=== PATIENT | male | born 1965 ===

== ENCOUNTER 2017-09-23 15:20 | Inpatient (IN) | payer MEDICAID ==
[2017-09-23 15:20] VITALS: BMI 27.1
--- NOTE | 2017-09-23 16:37 | C.PDOC ---
History Of Present Illness 52M c/o bilateral leg redness and "burning" pain x2 days. chronic swelling. says he has had same problem in the past but unsure of cause. denies f/c, n/v. Time Seen by Provider: 09/23/17 16:31 Chief Complaint (Nursing): Abnormal Skin Integrity Past Medical History Vital Signs: Last Vital Signs Temp 97.4 F L 09/28/17 07:45 Pulse 65 09/28/17 07:45 Resp 20 09/28/17 07:45 BP 123/78 09/28/17 07:45 Pulse Ox 95 09/28/17 07:45 - Medical History PMH: Anxiety, Arthritis, Asthma, Back Problems, Depression, Hepatitis (c), HIV, Rheumatoid Arthritis (hands, knees, ankles) Denies: Chronic Kidney Disease Surgical History: Endoscopy Family History: States: Other Other Family History: nc - Social History Hx Alcohol Use: No Hx Substance Use: Yes (Clean for 5 yrs. now) Review Of Systems Except As Marked, All Systems Reviewed And Found Negative. Constitutional: Negative for: Fever, Chills Cardiovascular: Negative for: Chest Pain Respiratory: Negative for: Cough, Shortness of Breath Gastrointestinal: Negative for: Vomiting, Abdominal Pain Skin: Positive for: Rash Neurological: Negative for: Weakness, Numbness, Headache Physical Exam - Physical Exam Appears: Well, Non-toxic, No Acute Distress Skin: Warm, Dry Head: Atraumatic Eye(s): bilateral: PERRL Nose: No Epistaxis Oral Mucosa: Moist Cardiovascular: Rhythm Regular Respiratory: No Decreased Breath Sounds, No Accessory Muscle Use, No Rales, No Rhonchi, No Stridor, No Wheezing Gastrointestinal/Abdominal: No Tenderness Extremity: Swelling, Other (2+ ) Pulses: Left Dorsalis Pedis: Normal, Right Dorsalis Pedis: Normal Neurological/Psych: Oriented x3, Other (no focal deficits) ED Course And Treatment - Laboratory Results Result Diagrams: 09/27/17 07:06 09/27/17 07:06 O2 Sat by Pulse Oximetry: 94 Disposition - Disposition Disposition: HOSPITALIZED Disposition Time: 19:03 Condition: STABLE - Clinical Impression Clinical Impression: Cellulitis of both feet, AIDS, Hepatitis C
--- NOTE | 2017-09-23 17:09 | RAD ---
HISTORY: leg swelling COMPARISON: None available. TECHNIQUE: Chest, one view. FINDINGS: Examination limited by habitus and hypoinflation. LUNGS: Right hilar/infrahilar prominence of uncertain etiology ; adenopathy is not excluded. Left hilar prominence. Hazy patchy opacity in the left upper lobe may reflect pneumonia. Probable atelectasis at the right lung base. Please note that chest x-ray has limited sensitivity for the detection of pulmonary masses. PLEURA: No significant pleural effusion identified. No definite pneumothorax . CARDIOVASCULAR: Heart size appears within normal limits. OSSEOUS STRUCTURES: No acute osseous abnormality identified. VISUALIZED UPPER ABDOMEN: Unremarkable. OTHER FINDINGS: None. IMPRESSION: Right hilar/infrahilar prominence of uncertain etiology ; adenopathy is not excluded. Left hilar prominence. Further evaluation may be considered with CT of the chest with IV contrast if indicated. Hazy patchy opacity in the left upper lobe may reflect pneumonia. Probable atelectasis at the right lung base.
[2017-09-23 17:29] LABS: ALBUMIN 2.3 g/dL (3.5-5.0); ALT/SGPT 54 U/L (21-72); AST/SGOT 114 U/L (17-59); BLOOD UREA NITROGEN 15 mg/dL (9-20); CALCIUM 7.4 mg/dl (8.6-10.4); GFR AFRICAN-AMERICAN > 60; GFR NON-AFRICAN AMERICAN > 60
[2017-09-23 17:31] LABS: BASO % 0.3 % (0.0-2.0); EOS % 0.6 % (0.0-4.0); HEMOGLOBIN 12.1 g/dL (12.0-18.0); LYMPH % 13.7 % (20.0-40.0); MEAN CELL VOLUME 94.4 fL (80.0-94.0); MEAN CORPUSCULAR HEMOGLOBIN 32.4 pg (27.0-31.0); MEAN CORPUSCULAR HGB CONC 34.4 g/dL (33.0-37.0); MEAN PLATELET VOLUME 9.2 fL (7.2-11.7); MONO % 14.2 % (0.0-10.0); NEUT # 5.2 K/uL (1.8-7.0); NEUT % 71.2 % (50.0-75.0); NRBC % 0.1 % (0.0-2.0); RBC 3.72 Mil/uL (4.40-5.90); RED CELL DISTRIBUTION WIDTH 14.6 % (11.5-14.5); WHITE BLOOD COUNT 7.3 K/uL (4.8-10.8)
[2017-09-23 17:35] LABS: ALB/GLOB RATIO 0.6 (1.0-2.1)
[2017-09-23 17:42] LABS: B-TYPE NATRIURETIC PEPTIDE 654 pg/mL (0-900)
[2017-09-23] MEDS ORDERED: Piperacill/Tazo 3.375gm in Dex 3.375 GM/50 ML BAG IVPB STA (19:03)
[2017-09-23] MEDS ORDERED: Vancomycin 500 mg Inj IVPB STA (19:03)
[2017-09-23] MEDS ORDERED: Albuterol HFA 90 mcg/actuation (8 g) IH PRN (20:58)
[2017-09-23] MEDS ORDERED: SODIUM BICARBONATE PO SCH (21:00)
[2017-09-23] MEDS ORDERED: SODIUM SULFATE PO SCH (21:00)
[2017-09-23] MEDS ORDERED: SODIUM CHLORIDE PO SCH (21:00)
[2017-09-23] MEDS ORDERED: [UNRECOGNIZED DRUG - OTHER] PO SCH (21:00)
[2017-09-23] MEDS ORDERED: POTASSIUM CHLORIDE PO SCH (21:00)
[2017-09-23] MEDS: Piperacill/Tazo 3.375gm in Dex 3.375 GM/50 ML BAG IVPB SCH (21:04)
[2017-09-24] MEDS: Piperacill/Tazo 3.375gm in Dex 3.375 GM/50 ML BAG IVPB SCH ×4 (02:59→21:49)
[2017-09-24] MEDS: oxyCODONE 5 mg Immediate Release Tab PO PRN (11:06)
[2017-09-24] MEDS: Vancomycin 1 gm/NS 200 ml 1 GM/200 ML BAG IVPB SCH (14:41)
[2017-09-24] MEDS: Silver Sulfadiazine 1% Cream (20 gm) TOP SCH (18:40)
--- NOTE | 2017-09-25 02:35 | CP.PCM.HP ---
History of Present Illness - History of Present Illness History of Present Illness: CC: B/l Leg pain, swelling and discharge x 1 week HPi: 52M with h/o chronic hep C infection , hepatocellular cancer and he also have AIDS on HAART,he is ambulatory and independent of ADL complaint with diet and medication.he is undergoing workup for Hepatocellular cancer at [facility] c/o bilateral leg redness and "burning" pain x2 days. chronic swelling. says he has had same problem in the past but unsure of cause. denies f/c, n/v. He also have mild abdominal discomfort Present on Admission - Present on Admission Any Indicators Present on Admission: Yes Review of Systems - Constitutional Constitutional: Chills, Fatigue, Fever, Lethargy, Malaise, Weight Loss - EENT Eyes: absent: As Per HPI, Blind Spots, Blurred Vision, Change in Vision, Decreased Night Vision, Diplopia, Discharge, Dry Eye, Exophthalmos, Floaters, Irritation, Itchy Eyes, Loss of Peripheral Vision, Pain, Photophobia, Requires Corrective Lenses, Sees Flashes, Spots in Vision, Tunnel Vision, Other Visual Disturbances, Loss of Vision, Other Nose/Mouth/Throat: absent: As Per HPI, Epistaxis, Nasal Congestion, Nasal Discharge, Nasal Obstruction, Nasal Trauma, Nose Pain, Post Nasal Drip, Sinus Pain, Sinus Pressure, Bleeding Gums, Change in Voice, Dental Pain, Dry Mouth, Dysphagia, Halitosis, Hoarsness, Lip Swelling, Mouth Lesions, Mouth Pain, Odynophagia, Sore Throat, Throat Swelling, Tongue Swelling, Facial Pain, Neck Pain, Neck Mass, Other - Cardiovascular Cardiovascular: Pedal Edema. absent: As Per HPI, Acrocyanosis, Chest Pain, Chest Pain at Rest, Chest Pain with Activity, Claudication, Diaphoresis, Dyspnea , Dyspnea on Exertion, Edema, Irregular Heart Rhythm, Pain Radiating to Arm/Neck /Jaw, Leg Edema, Leg Ulcers, Lightheadedness, Orthopnea, Palpitations, Paroxysmal Nocturnal Dyspnea, Radiating Pain, Rapid Heart Rate, Slow Heart Rate , Syncope, Other - Respiratory Respiratory: absent: As Per HPI, Cough, Dyspnea, Hemoptysis, Dyspnea on Exertion , Wheezing, Snoring, Stridor, Pain on Inspiration, Chest Congestion, Excessive Mucous Production, Change in Mucous Color, Pain with Coughing, Other - Gastrointestinal Gastrointestinal: Abdominal Pain. absent: As Per HPI, Belching, Bloating, Change in Bowel Habits, Change in Stool Character, Coffee Ground Emesis, Constipation, Cramping, Diarrhea, Dyspepsia, Dysphagia, Early Satiety, Excessive Flatus, Fecal Incontinence, Heartburn, Hematemesis, Hematochezia, Loose Stools, Melena, Nausea, Odynophagia, Temesmus, Vomiting, Other - Genitourinary Genitourinary: absent: As Per HPI, Change in Urinary Stream, Difficulty Urinating, Dysuria, Flank Pain, Hematuria, Pyuria, Nocturia, Urinary Incontinence, Urinary Frequency, Urinary Hesitance, Urinary Urgency, Voiding Freq/Small Amts, Freq UTI, Hx Renal/Bladder Calculi, Hx /Renal Surgery, Bladder Distension, Other - Musculoskeletal Musculoskeletal: Myalgias - Integumentary Integumentary: Changing Lesions, Dry Skin, Erythema, Non-Healing Lesions, Swelling, Wounds - Neurological Neurological: absent: As Per HPI, Abnormal Gait, Abnormal Hearing, Abnormal Movements, Abnormal Speech, Behavioral Changes, Burning Sensations, Confusion, Convulsions, Disequilibrium, Dizziness, Numbness, Focal Weakness, Frequent Falls , Headaches, Lack of Coordination, Loss of Vision, Memory Loss, Paresthesias, Radicular Pain, Restless Legs, Sensory Deficit, Syncope, Tingling, Tremor, Vertigo, Weakness, Other Visual Disturbances, Other - Psychiatric Psychiatric: absent: As Per HPI, Abnormal Sleep Pattern, Anhedonia, Anxiety, Auditory Hallucinations, Behavioral Changes, Change in Appetite, Change in Libido, Confusion, Depression, Difficulty Concentrating, Hallucinations, Homicidal Ideation, Hopelessness, Irritability, Memory Loss, Mood Swings, Panic Attacks, Paranoia, Suicidal Ideation, Visual Hallucinations, Tactile Hallucinations, Other - Endocrine Endocrine: absent: As Per HPI, Change in Body Appearance, Change in Libido, Cold Intolorance, Deepening of Voice, Excessive Sweating, Fatigue, Flushing, Heat Intolorance, Increase in Ring/Shoe/Hat Size, Palpitations, Polydipsia, Polyphagia, Polyuria, Other Past Patient History - Past Medical History & Family History Past Medical History?: Yes - Past Social History Smoking Status: Light Smoker < 10 Cigarettes Daily - CARDIAC Hx Cardiac Disorders: No - PULMONARY Hx Asthma: Yes - NEUROLOGICAL Hx Neurological Disorder: Yes Hx Dizziness: Yes Other/Comment: NUMBNESS/CRAMPS LEGS - HEENT Hx HEENT Problems: No - RENAL Hx Chronic Kidney Disease: No - ENDOCRINE/METABOLIC Hx Endocrine Disorders: No - HEMATOLOGICAL/ONCOLOGICAL Hx Human Immunodeficiency Virus (HIV): Yes - INTEGUMENTARY Hx Dermatological Problems: No - MUSCULOSKELETAL/RHEUMATOLOGICAL Hx Arthritis: Yes Hx Falls: No Hx Rheumatoid Arthritis: Yes (hands, knees, ankles) - GASTROINTESTINAL Hx Gastrointestinal Disorders: No - GENITOURINARY/GYNECOLOGICAL Hx Genitourinary Disorders: No - PSYCHIATRIC Hx Anxiety: Yes Hx Depression: Yes Hx Substance Use: Yes (Clean for 5 yrs. now) - SURGICAL HISTORY Hx Surgeries: Yes - ANESTHESIA Hx Anesthesia: Yes Hx Anesthesia Reactions: No Hx Malignant Hyperthermia: No Meds Allergies/Adverse Reactions: Allergies Allergy/AdvReac Type Severity Reaction Status Date / Time No Known Allergies Allergy Verified 09/23/17 15:36 Physical Exam - Constitutional Appears: No Acute Distress, Chronically Ill - Head Exam Head Exam: ATRAUMATIC, NORMAL INSPECTION, NORMOCEPHALIC - Eye Exam Eye Exam: EOMI, Normal appearance, PERRL Pupil Exam: NORMAL ACCOMODATION, PERRL - Respiratory Exam Respiratory Exam: Clear to Auscultation Bilateral, NORMAL BREATHING PATTERN - Cardiovascular Exam Cardiovascular Exam: REGULAR RHYTHM - GI/Abdominal Exam GI & Abdominal Exam: Normal Bowel Sounds, Organomegaly - Rectal Exam Rectal Exam: Deferred - Extremities Exam Extremities exam: Positive for: tenderness Additional comments: Pt has erythema and redness, swelling from knee down to foot and open wound on laertal aspect on both legs on popliteal fossa he has excoriation - Psychiatric Exam Psychiatric exam: Anxious - Skin Skin Exam: Erythema, Rash, Vesicles Results - Vital Signs Recent Vital Signs: Last Vital Signs Temp 98.3 F 09/24/17 23:34 Pulse 71 09/24/17 23:34 Resp 18 09/24/17 23:34 BP 120/69 09/24/17 23:34 Pulse Ox 95 09/24/17 23:34 - Labs Result Diagrams: 09/25/17 08:41 09/25/17 08:41 Assessment & Plan (1) Cellulitis of both feet Assessment and Plan: wound care podiatry consult antibiotics Status: Acute (2) HCC (hepatocellular carcinoma) Assessment and Plan: pending work up after that he will have plan of care Status: Acute (3) Hepatitis C Status: Chronic (4) AIDS Assessment and Plan: On HAART Status: Acute
[2017-09-25] MEDS: Vancomycin 1 gm/NS 200 ml 1 GM/200 ML BAG IVPB SCH ×2 (02:45→15:09)
[2017-09-25] MEDS: Piperacill/Tazo 3.375gm in Dex 3.375 GM/50 ML BAG IVPB SCH ×4 (04:24→21:29)
[2017-09-25 08:28] VITALS: RESP 20
[2017-09-25 08:49] LABS: HEMOGLOBIN 12.1 g/dL (12.0-18.0); MEAN CELL VOLUME 93.9 fL (80.0-94.0); MEAN CORPUSCULAR HEMOGLOBIN 32.1 pg (27.0-31.0); MEAN CORPUSCULAR HGB CONC 34.2 g/dL (33.0-37.0); MEAN PLATELET VOLUME 8.2 fL (7.2-11.7); RBC 3.76 Mil/uL (4.40-5.90); RED CELL DISTRIBUTION WIDTH 14.7 % (11.5-14.5); WHITE BLOOD COUNT 6.9 K/uL (4.8-10.8)
[2017-09-25 09:07] LABS: BLOOD UREA NITROGEN 16 mg/dL (9-20); CALCIUM 7.1 mg/dl (8.6-10.4); GFR AFRICAN-AMERICAN > 60; GFR NON-AFRICAN AMERICAN > 60
--- NOTE | 2017-09-25 09:35 | CP.PCM.CON ---
<Ulysses Andujar - Last Filed: 09/25/17 09:35> Past Patient History - Past Medical History & Family History Past Medical History?: Yes - Past Social History Smoking Status: Light Smoker < 10 Cigarettes Daily - CARDIAC Hx Cardiac Disorders: No - PULMONARY Hx Asthma: Yes - NEUROLOGICAL Hx Neurological Disorder: Yes Hx Dizziness: Yes Other/Comment: NUMBNESS/CRAMPS LEGS - HEENT Hx HEENT Problems: No - RENAL Hx Chronic Kidney Disease: No - ENDOCRINE/METABOLIC Hx Endocrine Disorders: No - HEMATOLOGICAL/ONCOLOGICAL Hx Human Immunodeficiency Virus (HIV): Yes - INTEGUMENTARY Hx Dermatological Problems: No - MUSCULOSKELETAL/RHEUMATOLOGICAL Hx Arthritis: Yes Hx Falls: No Hx Rheumatoid Arthritis: Yes (hands, knees, ankles) - GASTROINTESTINAL Hx Gastrointestinal Disorders: No - GENITOURINARY/GYNECOLOGICAL Hx Genitourinary Disorders: No - PSYCHIATRIC Hx Anxiety: Yes Hx Depression: Yes Hx Substance Use: Yes (Clean for 5 yrs. now) - SURGICAL HISTORY Hx Surgeries: Yes - ANESTHESIA Hx Anesthesia: Yes Hx Anesthesia Reactions: No Hx Malignant Hyperthermia: No Meds Allergies/Adverse Reactions: Allergies Allergy/AdvReac Type Severity Reaction Status Date / Time No Known Allergies Allergy Verified 09/23/17 15:36 - Medications Medications: Current Medications Albuterol (Ventolin Hfa 90 Mcg/Actuation (8 G)) 2 puff IH Q4 PRN PRN Reason: Shortness of Breath Darunavir (Prezista) 800 mg PO DAILY [facility] Last Admin: 09/24/17 10:15 Dose: 800 mg Dolutegravir Sodium (Tivicay) 50 mg PO DAILY [facility] Last Admin: 09/24/17 10:15 Dose: 50 mg Escitalopram Oxalate (Lexapro) 5 mg PO DAILY [facility] Last Admin: 09/24/17 10:15 Dose: 5 mg Gabapentin (Neurontin) 300 mg PO TID [facility] Last Admin: 09/24/17 17:00 Dose: 300 mg Heparin Sodium (Porcine) (Heparin) 5,000 units SC Q8 [facility] Last Admin: 09/25/17 05:44 Dose: 5,000 units Piperacillin Sod/Tazobactam Sod (Zosyn 3.375 Gm Iv Premix) 3.375 gm in 50 mls @ 100 mls/hr IVPB Q6H [facility] Last Admin: 09/25/17 08:35 Dose: 100 mls/hr Vancomycin/Sodium Chloride (Vancomycin 1 Gm/Ns 200 Ml) 1 gm in 200 mls @ 166.6 mls/hr IVPB Q12H [facility] Stop: 09/29/17 14:31 Last Admin: 09/25/17 02:45 Dose: 166.6 mls/hr Mirtazapine (Remeron) 15 mg PO HS [facility] Last Admin: 09/24/17 21:50 Dose: 15 mg Oxycodone HCl (Oxycodone Immediate Release Tab) 5 mg PO Q6 PRN PRN Reason: Pain, severe (8-10) Last Admin: 09/24/17 11:06 Dose: 5 mg Propranolol HCl (Inderal) 20 mg PO HS [facility] Last Admin: 09/24/17 21:50 Dose: 20 mg Ritonavir (Norvir) 100 mg PO DAILY [facility] Last Admin: 09/24/17 10:15 Dose: 100 mg Silver Sulfadiazine (Silvadene 1% 20 Gm) 1 ea TOP BID [facility] Last Admin: 09/24/17 18:40 Dose: 1 % Results - Vital Signs Recent Vital Signs: Last Vital Signs Temp 98.1 F 09/25/17 08:27 Pulse 75 09/25/17 08:27 Resp 20 09/25/17 08:27 BP 113/63 09/25/17 08:27 Pulse Ox 93 L 09/25/17 08:27 - Labs Result Diagrams: 09/25/17 08:41 09/25/17 08:41 Labs: Laboratory Results - last 24 hr 09/25/17 09/25/17 08:41 08:41 WBC 6.9 RBC 3.76 L Hgb 12.1 Hct 35.3 MCV 93.9 MCH 32.1 H MCHC 34.2 RDW 14.7 H Plt Count 143 MPV 8.2 Sodium 130 L Potassium 3.7 Chloride 98 Carbon Dioxide 30 Anion Gap 5 L BUN 16 Creatinine 0.6 L Est GFR ( Amer) > 60 Est GFR (Non-Af Amer) > 60 Random Glucose 74 L Calcium 7.1 L <Jeremy Ace - Last Filed: 09/25/17 11:52> History of Present Illness - History of Present Illness History of Present Illness: Podiatry Consult Note- Dr. Andujar 52 y.o male with PMH of HIV, Hepatitis C, Liver fibrosis, HCC seen at bedside for bilateral LE redness with pain. Patient is seen resting in bed, in NAD, and AAOx3. Patient complains of bilaterally redness that has occured for the past 3 days. He states that his legs has gotten progressively dry with increase redness. Most pain behind the knee. Patient reports this has happened in the past and he was given medication which caused the redness to go away. Patient denies n/v/sob/cp/chills or f. No other pedal complains at this time. Taken from EMR: PMD: Dr. Gregg Pino (last visit 06/19/2017) PMHx: HIV, Hepatitis C, Liver fibrosis, Anxiety, depression, HCC MEDS: see medication list Psurghx: liver biopsy PHosphx: various ED visits ALL: NKDA Social: denies ETOH/drug abuse, still smokes tobacco, approx 6-7 cigarettes per day. reports being clean for > 5 years from substance abuse Familyhx: denies any hx of cancer/CAD/KS/Stroke Meds - Medications Medications: Current Medications Albuterol (Ventolin Hfa 90 Mcg/Actuation (8 G)) 2 puff IH Q4 PRN PRN Reason: Shortness of Breath Darunavir (Prezista) 800 mg PO DAILY [facility] Last Admin: 09/24/17 10:15 Dose: 800 mg Dolutegravir Sodium (Tivicay) 50 mg PO DAILY [facility] Last Admin: 09/24/17 10:15 Dose: 50 mg Escitalopram Oxalate (Lexapro) 5 mg PO DAILY [facility] Last Admin: 09/24/17 10:15 Dose: 5 mg Gabapentin (Neurontin) 300 mg PO TID [facility] Last Admin: 09/24/17 17:00 Dose: 300 mg Heparin Sodium (Porcine) (Heparin) 5,000 units SC Q8 [facility] Last Admin: 09/25/17 05:44 Dose: 5,000 units Piperacillin Sod/Tazobactam Sod (Zosyn 3.375 Gm Iv Premix) 3.375 gm in 50 mls @ 100 mls/hr IVPB Q6H [facility] Last Admin: 09/25/17 08:35 Dose: 100 mls/hr Vancomycin/Sodium Chloride (Vancomycin 1 Gm/Ns 200 Ml) 1 gm in 200 mls @ 166.6 mls/hr IVPB Q12H [facility] Stop: 09/29/17 14:31 Last Admin: 09/25/17 02:45 Dose: 166.6 mls/hr Mirtazapine (Remeron) 15 mg PO HS [facility] Last Admin: 09/24/17 21:50 Dose: 15 mg Oxycodone HCl (Oxycodone Immediate Release Tab) 5 mg PO Q6 PRN PRN Reason: Pain, severe (8-10) Last Admin: 09/24/17 11:06 Dose: 5 mg Propranolol HCl (Inderal) 20 mg PO HS [facility] Last Admin: 09/24/17 21:50 Dose: 20 mg Ritonavir (Norvir) 100 mg PO DAILY [facility] Last Admin: 09/24/17 10:15 Dose: 100 mg Silver Sulfadiazine (Silvadene 1% 20 Gm) 1 ea TOP BID [facility] Last Admin: 09/24/17 18:40 Dose: 1 % Physical Exam - Constitutional Appears: Well, Non-toxic, No Acute Distress - Extremities Exam Additional comments: Vasc: DP and PT 2/4 bilaterally, CFT < 3 seconds, temperature gradient warm to warm, mild edema to the LE noted Ortho: pain with palpation to the LE Neuro: protective and gross sensation intact bilaterally Derm: erythema noted to the entire LE, no ulcerations noted, no drainage, no purulence, no odor; severe xerosis noted to the b/l LE, more prominent on the medial aspect of bilateral ankles - Neurological Exam Neurological exam: Alert, Oriented x3 - Psychiatric Exam Psychiatric exam: Normal Affect, Normal Mood Results - Vital Signs Recent Vital Signs: Last Vital Signs Temp 98.1 F 09/25/17 08:27 Pulse 75 09/25/17 08:27 Resp 20 09/25/17 08:27 BP 113/63 09/25/17 08:27 Pulse Ox 93 L 09/25/17 08:27 - Labs Result Diagrams: 09/25/17 08:41 09/25/17 08:41 Labs: Laboratory Results - last 24 hr 09/25/17 09/25/17 08:41 08:41 WBC 6.9 RBC 3.76 L Hgb 12.1 Hct 35.3 MCV 93.9 MCH 32.1 H MCHC 34.2 RDW 14.7 H Plt Count 143 MPV 8.2 Sodium 130 L Potassium 3.7 Chloride 98 Carbon Dioxide 30 Anion Gap 5 L BUN 16 Creatinine 0.6 L Est GFR ( Amer) > 60 Est GFR (Non-Af Amer) > 60 Random Glucose 74 L Calcium 7.1 L Assessment & Plan - Assessment and Plan (Free Text) Assessment: 52 y.o male seen at bedside for bilateral LE erythema and pain Plan: Patient was examined and evaluated Discussed plan in detail with attending Dr. Andujar Vitals, labs, charts reviewed (afebrile, absent leukocytosis) Duplex ordered to r/o DVT of the LE LE will be cleansed with saline, dressed with bacitracin, xeroform, DSD, and Kerlix tomorrow following Duplex examination Continue with IV abx Patient may WBAT Podiatry will continue to follow while in house Thank you for the consult
[2017-09-25] MEDS: Silver Sulfadiazine 1% Cream (20 gm) TOP SCH ×2 (11:09→15:43)
--- NOTE | 2017-09-25 14:51 | CARD ---
APPROVED REPORT EKG Measurement Heart [id number] <Conclusion> Sinus rhythm with premature atrial complexes Left axis deviation Septal infarct, age undetermined Prolonged QT Abnormal ECG
[2017-09-25] MEDS: oxyCODONE 5 mg Immediate Release Tab PO PRN (17:46)
--- NOTE | 2017-09-25 22:52 | CP.PCM.PN ---
Subjective - Date & Time of Evaluation Date of Evaluation: 09/25/17 Time of Evaluation: 17:00 - Subjective Subjective: Pt seen & evalauted, pt is on antibiotics, he is afebrile, feeling better, no nausea, vomitting, on wound care for cellulitis of b/l feet Objective - Vital Signs/Intake and Output Vital Signs (last 24 hours): Temp Pulse Resp BP Pulse Ox 97.9 F 68 20 108/69 98 09/25/17 16:45 09/25/17 16:45 09/25/17 16:45 09/25/17 16:45 09/25/17 16:45 Intake and Output: 09/25/17 09/26/17 18:59 06:59 Intake Total 710 Balance 710 - Medications Medications: Current Medications Albuterol (Ventolin Hfa 90 Mcg/Actuation (8 G)) 2 puff IH Q4 PRN PRN Reason: Shortness of Breath Darunavir (Prezista) 800 mg PO DAILY [facility] Last Admin: 09/25/17 11:09 Dose: 800 mg Dolutegravir Sodium (Tivicay) 50 mg PO DAILY [facility] Last Admin: 09/25/17 11:09 Dose: 50 mg Escitalopram Oxalate (Lexapro) 5 mg PO DAILY [facility] Last Admin: 09/25/17 11:09 Dose: 5 mg Gabapentin (Neurontin) 300 mg PO TID [facility] Last Admin: 09/25/17 17:46 Dose: 300 mg Heparin Sodium (Porcine) (Heparin) 5,000 units SC Q8 [facility] Last Admin: 09/25/17 21:29 Dose: 5,000 units Piperacillin Sod/Tazobactam Sod (Zosyn 3.375 Gm Iv Premix) 3.375 gm in 50 mls @ 100 mls/hr IVPB Q6H [facility] Last Admin: 09/25/17 21:29 Dose: 100 mls/hr Vancomycin/Sodium Chloride (Vancomycin 1 Gm/Ns 200 Ml) 1 gm in 200 mls @ 166.6 mls/hr IVPB Q12H [facility] Stop: 09/29/17 14:31 Last Admin: 09/25/17 15:09 Dose: 166.6 mls/hr Mirtazapine (Remeron) 15 mg PO HS [facility] Last Admin: 09/25/17 21:29 Dose: 15 mg Mupirocin (Bactroban Ointment) 0 gm TOP BID [facility] Last Admin: 09/25/17 17:46 Dose: Not Given Oxycodone HCl (Oxycodone Immediate Release Tab) 5 mg PO Q6 PRN PRN Reason: Pain, severe (8-10) Last Admin: 09/25/17 17:46 Dose: 5 mg Propranolol HCl (Inderal) 20 mg PO HS [facility] Last Admin: 09/25/17 21:29 Dose: 20 mg Ritonavir (Norvir) 100 mg PO DAILY [facility] Last Admin: 09/25/17 11:09 Dose: 100 mg Silver Sulfadiazine (Silvadene 1% 20 Gm) 1 ea TOP BID [facility] Last Admin: 09/25/17 11:09 Dose: 1 % - Labs Labs: 09/25/17 08:41 09/25/17 08:41 - Constitutional Appears: No Acute Distress - Head Exam Head Exam: ATRAUMATIC, NORMAL INSPECTION, NORMOCEPHALIC - Eye Exam Eye Exam: EOMI, Normal appearance, PERRL Pupil Exam: NORMAL ACCOMODATION, PERRL - ENT Exam ENT Exam: Mucous Membranes Moist, Normal Exam - Neck Exam Neck Exam: Full ROM, Normal Inspection. absent: Lymphadenopathy - Respiratory Exam Respiratory Exam: Clear to Ausculation Bilateral, NORMAL BREATHING PATTERN - Cardiovascular Exam Cardiovascular Exam: REGULAR RHYTHM, +S1, +S2. absent: Murmur - GI/Abdominal Exam GI & Abdominal Exam: Soft, Normal Bowel Sounds. absent: Tenderness Assessment and Plan (1) Cellulitis of both feet Status: Acute (2) Abdominal pain Status: Acute (3) Gastroenteritis Status: Acute (4) HCC (hepatocellular carcinoma) Status: Acute
[2017-09-26] MEDS: Vancomycin 1 gm/NS 200 ml 1 GM/200 ML BAG IVPB SCH ×2 (01:58→13:29)
[2017-09-26] MEDS: Piperacill/Tazo 3.375gm in Dex 3.375 GM/50 ML BAG IVPB SCH ×4 (03:30→22:22)
[2017-09-26 09:28] LABS: BASO # 0.1 K/uL (0.0-0.2); BASO % 0.7 % (0.0-2.0); EOS # 0.1 K/uL (0.0-0.7); EOS % 0.9 % (0.0-4.0); HEMOGLOBIN 12.3 g/dL (12.0-18.0); LYMPH # 1.8 K/uL (1.0-4.3); LYMPH % 22.1 % (20.0-40.0); MEAN CORPUSCULAR HEMOGLOBIN 33.3 pg (27.0-31.0); MEAN CORPUSCULAR HGB CONC 33.9 g/dL (33.0-37.0); MEAN PLATELET VOLUME 8.9 fL (7.2-11.7); NEUT # 5.2 K/uL (1.8-7.0); NEUT % 64.3 % (50.0-75.0); NRBC % 0.4 % (0.0-2.0); RBC 3.68 Mil/uL (4.40-5.90); RED CELL DISTRIBUTION WIDTH 15.2 % (11.5-14.5)
[2017-09-26 09:40] LABS: ALB/GLOB RATIO 0.5 (1.0-2.1); ALT/SGPT 44 U/L (21-72); AST/SGOT 116 U/L (17-59); BLOOD UREA NITROGEN 20 mg/dL (9-20); GFR AFRICAN-AMERICAN > 60; GFR NON-AFRICAN AMERICAN > 60
[2017-09-26 09:41] LABS: MEAN CELL VOLUME 98.4 fL (80.0-94.0)
[2017-09-26] MEDS: Silver Sulfadiazine 1% Cream (20 gm) TOP SCH ×2 (10:54→18:21)
--- NOTE | 2017-09-26 11:09 | VASCLAB ---
PROCEDURE: Lower Extremity Venous Duplex Exam. HISTORY: r/o DVT PRIORS: None. TECHNIQUE: Bilateral common femoral, femoral, popliteal and posterior tibial, peroneal and great saphenous veins were evaluated. Flow was assessed with color Doppler, compressibility, assessment of phasic flow and augmentation response. Report prepared by BARTOLOME Vargas FINDINGS: RIGHT: 1. Common Femoral Vein: 1.1. Compressibility - Fully compressible: Thrombus - None : Flow - Phasic: Augmentation -Normal: Reflux - None. 2. Femoral Vein: 2.1. Compressibility - Fully compressible: Thrombus - None : Flow - Phasic: Augmentation -Normal: Reflux - None. 3. Popliteal Vein: 3.1. Compressibility - Fully compressible: Thrombus - None : Flow - Phasic: Augmentation -Normal: Reflux - None. 4. Posterior Tibial Vein: 4.1. Compressibility - Fully compressible: Thrombus - None: Flow - Phasic: Augmentation -Normal: Reflux - None. 5. Peroneal Vein: 5.1. Compressibility - Fully compressible: Thrombus - None: Flow - Phasic: Augmentation -Normal: Reflux - None. 6. Great Saphenous Vein: 6.1. Compressibility - Fully compressible: Thrombus - None: Flow - Phasic: Augmentation - Normal: Reflux - None. LEFT: 1. Common Femoral Vein: 1.1. Compressibility - Fully compressible: Thrombus - None: Flow - Phasic: Augmentation -Normal: Reflux - None. 2. Femoral Vein: 2.1. Compressibility - Fully compressible: Thrombus - None: Flow - Phasic: Augmentation -Normal: Reflux - None. 3. Popliteal Vein: 3.1. Compressibility - Fully compressible: Thrombus - None : Flow - Phasic: Augmentation -Normal: Reflux - None. 4. Posterior Tibial Vein: 4.1. Compressibility - Fully compressible: Thrombus - None: Flow - Phasic: Augmentation -Normal: Reflux - None. 5. Peroneal Vein: 5.1. Compressibility - Fully compressible: Thrombus - None: Flow - Phasic: Augmentation -Normal: Reflux - None. 6. Great Saphenous Vein: 6.1. Compressibility - Fully compressible: Thrombus - None: Flow - Phasic: Augmentation - Normal: Reflux - None. OTHER FINDINGS: Right: None significant. Left: None significant. IMPRESSION: Right: No evidence of deep or superficial vein thrombosis of the right lower extremity. Normal valve function noted of the right side. Left: No evidence of deep or superficial vein thrombosis of the left lower extremity. Normal valve function noted of the left side.
--- NOTE | 2017-09-26 14:24 | CP.PCM.PN ---
Subjective - Date & Time of Evaluation Date of Evaluation: 09/26/17 Time of Evaluation: 14:21 - Subjective Subjective: 52 y.o male seen at bedside for bilateral LE redness with pain. Patient is seen resting in bed, in NAD, and AAOx3. He states that his legs has gotten progressively dry with increased redness. Most pain behind the knee. Patient reports this has happened in the past and he was given medication which caused the redness to go away. Patient denies n/v/sob/cp/chills or f. No other pedal complains at this time. Objective - Vital Signs/Intake and Output Vital Signs (last 24 hours): Temp Pulse Resp BP Pulse Ox 97.7 F 76 20 123/69 95 09/26/17 07:40 09/26/17 07:40 09/26/17 07:40 09/26/17 07:40 09/26/17 07:40 - Medications Medications: Current Medications Albuterol (Ventolin Hfa 90 Mcg/Actuation (8 G)) 2 puff IH Q4 PRN PRN Reason: Shortness of Breath Darunavir (Prezista) 800 mg PO DAILY [facility] Last Admin: 09/26/17 10:54 Dose: 800 mg Dolutegravir Sodium (Tivicay) 50 mg PO DAILY [facility] Last Admin: 09/26/17 10:54 Dose: 50 mg Escitalopram Oxalate (Lexapro) 5 mg PO DAILY [facility] Last Admin: 09/26/17 10:55 Dose: 5 mg Gabapentin (Neurontin) 300 mg PO TID [facility] Last Admin: 09/26/17 10:54 Dose: Not Given Heparin Sodium (Porcine) (Heparin) 5,000 units SC Q8 [facility] Last Admin: 09/26/17 13:29 Dose: 5,000 units Piperacillin Sod/Tazobactam Sod (Zosyn 3.375 Gm Iv Premix) 3.375 gm in 50 mls @ 100 mls/hr IVPB Q6H [facility] Last Admin: 09/26/17 08:14 Dose: 100 mls/hr Vancomycin/Sodium Chloride (Vancomycin 1 Gm/Ns 200 Ml) 1 gm in 200 mls @ 166.6 mls/hr IVPB Q12H [facility] Stop: 09/29/17 14:31 Last Admin: 09/26/17 13:29 Dose: 166.6 mls/hr Mirtazapine (Remeron) 15 mg PO HS [facility] Last Admin: 09/25/17 21:29 Dose: 15 mg Mupirocin (Bactroban Ointment) 0 gm TOP BID [facility] Last Admin: 09/26/17 10:52 Dose: 1 applic Oxycodone HCl (Oxycodone Immediate Release Tab) 5 mg PO Q6 PRN PRN Reason: Pain, severe (8-10) Last Admin: 09/25/17 17:46 Dose: 5 mg Propranolol HCl (Inderal) 20 mg PO HS [facility] Last Admin: 09/25/17 21:29 Dose: 20 mg Ritonavir (Norvir) 100 mg PO DAILY [facility] Last Admin: 09/26/17 10:53 Dose: 100 mg Silver Sulfadiazine (Silvadene 1% 20 Gm) 1 ea TOP BID [facility] Last Admin: 09/26/17 10:54 Dose: Not Given - Labs Labs: 09/26/17 09:05 09/26/17 09:05 - Constitutional Appears: Well, Non-toxic, No Acute Distress - Extremities Exam Additional comments: Vasc: DP and PT 2/4 bilaterally, CFT < 3 seconds, temperature gradient warm to warm, mild edema to the LE noted Ortho: pain with palpation to the LE Neuro: protective and gross sensation intact bilaterally Derm: erythema noted to the entire LE, no ulcerations noted, no drainage, no purulence, no odor; severe xerosis noted to the b/l LE, more prominent on the medial aspect of bilateral ankles, no ascending cellulitis, no fluctuance - Neurological Exam Neurological Exam: Alert, Awake, Oriented x3 - Psychiatric Exam Psychiatric exam: Normal Affect, Normal Mood Assessment and Plan - Assessment and Plan (Free Text) Assessment: 52 y.o male seen at bedside for bilateral LE erythema and pain Plan: Patient was examined and evaluated Discussed plan in detail with attending Dr. Andujar Vitals, labs, charts reviewed (afebrile, absent leukocytosis) US shows no evidence of DVT bactroban applied to bilateral lower extremities Continue with IV abx Patient may WBAT Podiatry will continue to follow while in house
--- NOTE | 2017-09-26 15:23 | CP.PCM.CON ---
History of Present Illness - History of Present Illness History of Present Illness: Mr. Adams is a 52-year-old man with a past medical history of chronic hep C infection, hepatocellular cancer and he also have AIDS on HAART, who was admitted with lower extremity erythema and pain. He was evaluated by psych for drowsiness due to medications and there was concern that there may be an underlying neurologic reason. When I saw the patient, he was somnolent, but able to follow commands and complied with the examination. He complained of bilateral lower extremity pain, but said that it was improving since he is not able to move his legs better. Review of Systems - Review of Systems All systems: reviewed and no additional remarkable complaints except Past Patient History - Past Medical History & Family History Past Medical History?: Yes - Past Social History Smoking Status: Light Smoker < 10 Cigarettes Daily - CARDIAC Hx Cardiac Disorders: No - PULMONARY Hx Asthma: Yes - NEUROLOGICAL Hx Neurological Disorder: Yes Hx Dizziness: Yes Other/Comment: NUMBNESS/CRAMPS LEGS - HEENT Hx HEENT Problems: No - RENAL Hx Chronic Kidney Disease: No - ENDOCRINE/METABOLIC Hx Endocrine Disorders: No - HEMATOLOGICAL/ONCOLOGICAL Hx Human Immunodeficiency Virus (HIV): Yes - INTEGUMENTARY Hx Dermatological Problems: No - MUSCULOSKELETAL/RHEUMATOLOGICAL Hx Arthritis: Yes Hx Falls: No Hx Rheumatoid Arthritis: Yes (hands, knees, ankles) - GASTROINTESTINAL Hx Gastrointestinal Disorders: No - GENITOURINARY/GYNECOLOGICAL Hx Genitourinary Disorders: No - PSYCHIATRIC Hx Anxiety: Yes Hx Depression: Yes Hx Substance Use: Yes (Clean for 5 yrs. now) - SURGICAL HISTORY Hx Surgeries: Yes - ANESTHESIA Hx Anesthesia: Yes Hx Anesthesia Reactions: No Hx Malignant Hyperthermia: No Meds Allergies/Adverse Reactions: Allergies Allergy/AdvReac Type Severity Reaction Status Date / Time No Known Allergies Allergy Verified 09/23/17 15:36 - Medications Medications: Current Medications Albuterol (Ventolin Hfa 90 Mcg/Actuation (8 G)) 2 puff IH Q4 PRN PRN Reason: Shortness of Breath Darunavir (Prezista) 800 mg PO DAILY [facility] Last Admin: 09/26/17 10:54 Dose: 800 mg Dolutegravir Sodium (Tivicay) 50 mg PO DAILY [facility] Last Admin: 09/26/17 10:54 Dose: 50 mg Escitalopram Oxalate (Lexapro) 5 mg PO DAILY [facility] Last Admin: 09/26/17 10:55 Dose: 5 mg Heparin Sodium (Porcine) (Heparin) 5,000 units SC Q8 [facility] Last Admin: 09/26/17 13:29 Dose: 5,000 units Piperacillin Sod/Tazobactam Sod (Zosyn 3.375 Gm Iv Premix) 3.375 gm in 50 mls @ 100 mls/hr IVPB Q6H [facility] Last Admin: 09/26/17 14:56 Dose: 100 mls/hr Vancomycin/Sodium Chloride (Vancomycin 1 Gm/Ns 200 Ml) 1 gm in 200 mls @ 166.6 mls/hr IVPB Q12H [facility] Stop: 09/29/17 14:31 Last Admin: 09/26/17 13:29 Dose: 166.6 mls/hr Mirtazapine (Remeron) 15 mg PO [facility] Last Admin: 09/25/17 21:29 Dose: 15 mg Mupirocin (Bactroban Ointment) 0 gm TOP BID [facility] Last Admin: 09/26/17 10:52 Dose: 1 applic Oxycodone HCl (Oxycodone Immediate Release Tab) 5 mg PO Q6 PRN PRN Reason: Pain, severe (8-10) Last Admin: 09/25/17 17:46 Dose: 5 mg Propranolol HCl (Inderal) 20 mg PO [facility] Last Admin: 09/25/17 21:29 Dose: 20 mg Ritonavir (Norvir) 100 mg PO DAILY [facility] Last Admin: 09/26/17 10:53 Dose: 100 mg Silver Sulfadiazine (Silvadene 1% 20 Gm) 1 ea TOP BID [facility] Last Admin: 09/26/17 10:54 Dose: Not Given Physical Exam - Constitutional Appears: Confused - Head Exam Head Exam: ATRAUMATIC, NORMAL INSPECTION, NORMOCEPHALIC - Eye Exam Eye Exam: EOMI, Normal appearance, PERRL - ENT Exam ENT Exam: Mucous Membranes Moist, Normal Exam - Neck Exam Neck exam: Positive for: Normal Inspection - Respiratory Exam Respiratory Exam: Clear to Auscultation Bilateral, NORMAL BREATHING PATTERN - Cardiovascular Exam Cardiovascular Exam: REGULAR RHYTHM, +S1, +S2 - GI/Abdominal Exam GI & Abdominal Exam: Normal Bowel Sounds, Soft. absent: Tenderness - Rectal Exam Rectal Exam: Deferred - Extremities Exam Extremities exam: Positive for: normal inspection - Back Exam Back exam: NORMAL INSPECTION - Neurological Exam Neurological exam: Altered, CN II-XII Intact, Reflexes Normal Additional comments: Oriented to place, but not time. Able to recall 1/3 objects, could not spell WORLD forward or backward, could not complete subtraction task. Generalized weakness with 4/5 strength throught; sensation was intact throughout to LT/P. Gait was not assessed due to bilateral lower extremity pain/cellulitis. - Psychiatric Exam Psychiatric exam: Depressed, Flat Affect Results - Vital Signs Recent Vital Signs: Last Vital Signs Temp 97.7 F 09/26/17 07:40 Pulse 76 09/26/17 07:40 Resp 20 09/26/17 07:40 BP 123/69 09/26/17 07:40 Pulse Ox 95 09/26/17 07:40 - Labs Result Diagrams: 09/26/17 09:05 09/26/17 09:05 Labs: Laboratory Results - last 24 hr 09/26/17 09/26/17 09/26/17 09:05 09:05 11:59 WBC 8.0 RBC 3.68 L Hgb 12.3 Hct 36.2 MCV 98.4 H D MCH 33.3 H MCHC 33.9 RDW 15.2 H Plt Count 138 MPV 8.9 Neut % (Auto) 64.3 Lymph % (Auto) 22.1 [place]bour % (Auto) 12.0 H Eos % (Auto) 0.9 Baso % (Auto) 0.7 Neut # 5.2 Lymph # 1.8 [place] # 1.0 H Eos # 0.1 Baso # 0.1 Sodium 132 Potassium 3.7 Chloride 100 Carbon Dioxide 27 Anion Gap 9 L BUN 20 Creatinine 0.6 L Est GFR ( Amer) > 60 Est GFR (Non-Af Amer) > 60 POC Glucose (mg/dL) 88 Random Glucose 64 L Calcium 7.0 L Total Bilirubin 2.4 H AST 116 H ALT 44 Alkaline Phosphatase 275 H Total Protein 6.2 L Albumin 2.0 L Globulin 4.2 H Albumin/Globulin Ratio 0.5 L Assessment & Plan (1) Toxic metabolic encephalopathy Assessment and Plan: HIV encephalopathy is also a strong possibility in this case. However, due to the recent infection/cellulitis and recent medication changes, we have to consider toxic-metabolic encephalopathy as a leading cause or a possible encephalitis. The fact that the patient has AIDS means that he may not have fever or white count in the setting of infection. I recommend the followin. MRI of the brain with and without contrast. 2. Continue current antibiotic regimen 3. Fluids with NS at 100 mL/hr 4. PT/OT eval and treatment. 5. DVT Px Thank you. Status: Acute
--- NOTE | 2017-09-26 15:38 | PCM.PSYCH ---
Initial Psychiatric Evaluation - Initial Psychiatric Evaluation Type of Admission: Voluntary Legal Status: Capacity Chief Complaint (in patient's own words): "I have anxiety " History of Present Illness and Precipitating Events: The pt is seen, chart reviewed, case discussed with staff. Consult was requested bc of AMS Nurse states he has been very lethargic and held his neurotin dose this morning. He is still drowsy and poor historian. Patient is a 52 year old man with a history of anxiety, HIV. He is single, no children, and homeless. Currently he collects disability. Patient states his anxiety is well controlled on Lexapro. This medication was prescribed at a prior hospitalization likely at [facility]. He was also worked up there for AMS, likely due to brain involvement by HIV. He currently denies any feelings of anxiety, paranoia, hallucinations, or depression. He denies any use of drugs, alcohol, or tobacco products. He has a hx of drug use but has been sober for several years. His cognition comes and goes, most likely due to impending delirium. He is barely oriented and has poor attention and memory. Psych Hx: Denies PMH: Denies but again he is a poor historian, as he does have HIV, lver cirrhosis etc. Pls see chart. Family Psych Hx: Denies Current Medications: Active Medications Generic Name Dose Route Start Last Admin Trade Name Freq PRN Reason Stop Dose Admin Albuterol 2 puff 09/23/17 20:58 Ventolin Hfa 90 Mcg/Actuation (8 G) IH Q4 PRN Shortness of Breath Darunavir 800 mg 09/24/17 10:00 09/26/17 10:54 Prezista PO 800 mg DAILY [facility] Administration Dolutegravir Sodium 50 mg 09/24/17 10:00 09/26/17 10:54 Tivicay PO 50 mg DAILY [facility] Administration Escitalopram Oxalate 5 mg 09/24/17 10:00 09/26/17 10:55 Lexapro PO 5 mg DAILY [facility] Administration Heparin Sodium (Porcine) 5,000 units 09/23/17 22:00 09/26/17 13:29 Heparin SC 5,000 units Q8 [facility] Administration Piperacillin Sod/Tazobactam Sod 3.375 gm in 50 mls @ 100 mls/hr 09/23/17 21: 00 09/26/17 14:56 Zosyn 3.375 Gm Iv Premix IVPB 100 mls/hr Q6H [facility] Administration Vancomycin/Sodium Chloride 1 gm in 200 mls @ 166.6 mls/hr 09/24/17 14:30 13:29 Vancomycin 1 Gm/Ns 200 Ml IVPB 09/29/17 14:31 166.6 mls/hr Q12H [facility] Administration Mirtazapine 15 mg 09/23/17 22:00 09/25/17 21:29 Remeron PO 15 mg HS [facility] Administration Mupirocin 0 gm 09/25/17 11:15 09/26/17 10:52 Bactroban Ointment TOP 1 applic BID [facility] Administration Oxycodone HCl 5 mg 09/23/17 20:56 09/25/17 17:46 Oxycodone Immediate Release Tab PO 5 mg Q6 PRN Administration Pain, severe (8-10) Propranolol HCl 20 mg 09/23/17 22:00 09/25/17 21:29 Inderal PO 20 mg HS [facility] Administration Ritonavir 100 mg 09/24/17 10:00 09/26/17 10:53 Norvir PO 100 mg DAILY [facility] Administration Silver Sulfadiazine 1 ea 09/24/17 18:00 09/26/17 10:54 Silvadene 1% 20 Gm TOP Not Given BID [facility] Past Psychiatric History - Past Psychiatric History Previous Treatment History: None Pertinent Medical Hx (Current Medical&Sleep Prob, Allergies): Allergies Allergy/AdvReac Type Severity Reaction Status Date / Time No Known Allergies Allergy Verified 09/23/17 15:36 Ibuprofen [Motrin Tab] 600 mg PO PRN PRN 07/18/17 [id number] Sulf,Bicarb,Cl/KCl [Gavilyte-C Solution] 4,000 ml PO ASDIR 07/18/17 Albuterol HFA [Ventolin HFA 90 mcg/actuation (8 g)] 2 puff IH Q4 PRN inhaler Darunavir [Prezista] 800 mg PO DAILY tab 07/26/17 Dolutegravir Sodium [Tivicay] 50 mg PO DAILY tab 07/26/17 Escitalopram [Lexapro] 5 mg PO DAILY tab 07/26/17 Gabapentin [Neurontin] 300 mg PO TID cap 07/26/17 Mirtazapine [Remeron] 15 mg PO HS tab 07/26/17 Propranolol [Inderal] 20 mg PO HS tab 07/26/17 Ritonavir [Norvir] 100 mg PO DAILY tab 07/26/17 Review of Systems - Review of Systems All systems: reviewed and no additional remarkable complaints except - Neurological Neurological: Confusion - Psychiatric Psychiatric: Abnormal Sleep Pattern, Anxiety, Confusion, Difficulty Concentrating. absent: Depression, Hallucinations, Homicidal Ideation, Paranoia , Suicidal Ideation Mental Status Examination - Personal Presentation Personal Presentation: Looks stated age - Affect Affect: Blunted - Motor Activity Motor Activity: Psychomotor Retardation - Reliability in Providing Information Reliability in Providing Information: Poor, due to alteration in thoughts, Poor , due to altered mood - Speech Speech: Disorganized - Mood Mood: Neutral - Formal Thought Process Formal Thought Process: Loosening of associations, Perservation - Cognitive Functions Orientation: Person, Place, Situation Sensorium: Drowsy Attention/Concentration: Easily distracted Abstract Thinking: [place] Estimate of Intelligence: Below average Judgement: Imparied, as evidence by: Lack of insight into illness Memory: Recent impaired, as evidence by: Inability to recall events of the day, Remote impaired as evidenced by: Inability to recall sig life events - Risk Risk: Diminished functioning - Strength & Assets Inventory Strength & Assets Inventory: Cooperative DSM 5 DX - DSM 5 DSM 5 Diagnosis: Delirium MASSIEL - Recommended/Plan of Treatment Treatment Recommendations and Plan of Treatment: Patient is on Lexapro 5mg and Remeron 15mg gabapentin is held due to sedation Psychoeducation and support rule out underlying conditions for delirium - infection, neuro, etc. 34min
[2017-09-26] MEDS: oxyCODONE 5 mg Immediate Release Tab PO PRN (18:44)
--- NOTE | 2017-09-26 23:57 | CP.PCM.PN ---
Subjective - Date & Time of Evaluation Date of Evaluation: 09/26/17 Time of Evaluation: 18:40 - Subjective Subjective: Pt seen and examined, he was drowsy before was on multiple medications ( antipsycotics/ pain meds) which were on hold, now alert has cellulitis of b/l LE , on antibiotics Objective - Vital Signs/Intake and Output Vital Signs (last 24 hours): Temp Pulse Resp BP Pulse Ox 98.0 F 75 20 120/65 90 L 09/26/17 16:05 09/26/17 16:05 09/26/17 16:05 09/26/17 16:05 09/26/17 16:05 Intake and Output: 09/26/17 09/27/17 18:59 06:59 Intake Total 360 Balance 360 - Medications Medications: Current Medications Albuterol (Ventolin Hfa 90 Mcg/Actuation (8 G)) 2 puff IH Q4 PRN PRN Reason: Shortness of Breath Darunavir (Prezista) 800 mg PO DAILY [facility] Last Admin: 09/26/17 10:54 Dose: 800 mg Dolutegravir Sodium (Tivicay) 50 mg PO DAILY [facility] Last Admin: 09/26/17 10:54 Dose: 50 mg Escitalopram Oxalate (Lexapro) 5 mg PO DAILY [facility] Last Admin: 09/26/17 10:55 Dose: 5 mg Piperacillin Sod/Tazobactam Sod (Zosyn 3.375 Gm Iv Premix) 3.375 gm in 50 mls @ 100 mls/hr IVPB Q6H [facility] Last Admin: 09/26/17 22:22 Dose: 100 mls/hr Vancomycin/Sodium Chloride (Vancomycin 1 Gm/Ns 200 Ml) 1 gm in 200 mls @ 166.6 mls/hr IVPB Q12H [facility] Stop: 09/29/17 14:31 Last Admin: 09/26/17 13:29 Dose: 166.6 mls/hr Mirtazapine (Remeron) 15 mg PO HS [facility] Last Admin: 09/26/17 22:23 Dose: 15 mg Mupirocin (Bactroban Ointment) 0 gm TOP BID [facility] Last Admin: 09/26/17 18:20 Dose: 1 applic Oxycodone HCl (Oxycodone Immediate Release Tab) 5 mg PO Q6 PRN PRN Reason: Pain, severe (8-10) Last Admin: 09/26/17 18:44 Dose: 5 mg Propranolol HCl (Inderal) 20 mg PO HS [facility] Last Admin: 09/26/17 22:34 Dose: 20 mg Ritonavir (Norvir) 100 mg PO DAILY [facility] Last Admin: 09/26/17 10:53 Dose: 100 mg Silver Sulfadiazine (Silvadene 1% 20 Gm) 1 ea TOP BID [facility] Last Admin: 09/26/17 18:21 Dose: Not Given - Labs Labs: 09/26/17 09:05 09/26/17 09:05 - Constitutional Appears: No Acute Distress - Head Exam Head Exam: ATRAUMATIC, NORMAL INSPECTION, NORMOCEPHALIC - Eye Exam Eye Exam: EOMI, Normal appearance, PERRL Pupil Exam: NORMAL ACCOMODATION, PERRL - Respiratory Exam Respiratory Exam: Clear to Ausculation Bilateral, NORMAL BREATHING PATTERN - Cardiovascular Exam Cardiovascular Exam: REGULAR RHYTHM, +S1, +S2. absent: Murmur - GI/Abdominal Exam GI & Abdominal Exam: Soft, Normal Bowel Sounds. absent: Tenderness - Extremities Exam Additional comments: b/l LE excoriations cellulitis Assessment and Plan (1) Cellulitis of both feet Assessment & Plan: antibiotics medical optimization Status: Acute (2) HCC (hepatocellular carcinoma) Status: Acute (3) Hepatitis C Status: Chronic (4) AIDS Status: Acute
[2017-09-27] MEDS: Vancomycin 1 gm/NS 200 ml 1 GM/200 ML BAG IVPB SCH ×2 (02:14→15:18)
[2017-09-27] MEDS: Piperacill/Tazo 3.375gm in Dex 3.375 GM/50 ML BAG IVPB SCH ×4 (02:53→22:31)
[2017-09-27] MEDS ORDERED: Albuterol-Ipratrop 3 mg / 0.5 (3 ml) UD INH STA (06:43)
[2017-09-27 07:14] LABS: EOS % 0.2 % (0.0-4.0)
[2017-09-27 07:38] LABS: BASO % 0.5 % (0.0-2.0); HEMOGLOBIN 12.9 g/dL (12.0-18.0); LYMPH % 23.3 % (20.0-40.0); MEAN CORPUSCULAR HEMOGLOBIN 33.9 pg (27.0-31.0); MEAN CORPUSCULAR HGB CONC 34.9 g/dL (33.0-37.0); MEAN PLATELET VOLUME 8.8 fL (7.2-11.7); MONO # 0.9 K/uL (0.0-0.8); MONO % 10.8 % (0.0-10.0); NEUT # 5.6 K/uL (1.8-7.0); NEUT % 65.2 % (50.0-75.0); NRBC % 0.4 % (0.0-2.0); RBC 3.81 Mil/uL (4.40-5.90); RED CELL DISTRIBUTION WIDTH 15.3 % (11.5-14.5); WHITE BLOOD COUNT 8.6 K/uL (4.8-10.8)
[2017-09-27 07:44] LABS: ALB/GLOB RATIO 0.6 (1.0-2.1); ALBUMIN 2.1 g/dL (3.5-5.0); ALT/SGPT 38 U/L (21-72); AST/SGOT 128 U/L (17-59); BLOOD UREA NITROGEN 20 mg/dL (9-20); CALCIUM 7.2 mg/dl (8.6-10.4); GFR AFRICAN-AMERICAN > 60; GFR NON-AFRICAN AMERICAN > 60; MAGNESIUM 1.7 mg/dL (1.6-2.3)
[2017-09-27] MEDS: Silver Sulfadiazine 1% Cream (20 gm) TOP SCH ×2 (09:25→18:41)
--- NOTE | 2017-09-27 10:30 | MRI ---
PROCEDURE: MRI BRAIN WITHOUT CONTRAST HISTORY: encephalopathy COMPARISON: None. TECHNIQUE: Multiplanar, multisequence MR images of the brain were obtained without intravenous contrast enhancement. T1 axial and gradient sequences were not obtained as the patient did not cooperate for further examination. FINDINGS: This examination is limited as the patient was unable to co-operate for complete examination. HEMORRHAGE: None DWI: No evidence of an acute or early subacute infarction. BRAIN PARENCHYMA: There is no mass, mass effect or abnormal extra-axial fluid collection there is a solitary T2/FLAIR hyperintense focus in the left insula, nonspecific. There is no territorial infarction. The midline sagittal structures are normal. VENTRICLES: There is mild global parenchymal volume loss and proportionate enlargement of the ventricles and cortical sulci, advanced for the patient's age. CRANIUM: There is normal bone marrow signal pattern. ORBITS: Grossly unremarkable. PARANASAL SINUSES/MASTOIDS: Predominantly clear. VASCULAR SYSTEM: There are normal signal voids in the larger intracranial arteries. OTHER FINDINGS: None. IMPRESSION: Limited examination as the patient could not cooperate for complete examination. Allowing for this, no acute intracranial abnormality. Nonspecific small solitary white matter change in the left insula, which may represent chronic microangiopathic change, gliosis or old infarction. Mild global parenchymal volume loss, advanced for the patient's age.
[2017-09-27] MEDS: oxyCODONE 5 mg Immediate Release Tab PO PRN ×2 (11:36→20:10)
--- NOTE | 2017-09-27 12:48 | CP.PCM.PN ---
Subjective - Date & Time of Evaluation Date of Evaluation: 09/27/17 Time of Evaluation: 12:40 - Subjective Subjective: Mr. Adams was seen and examined at the bedside. He is alert, oriented to place ( [facility]), but not to time and person. He denies any headache, blurred vision, diplopia, but complains of pain in his abdominal area. The abdomen is slightly distended, soft. His AST liver enzymes is elevated. He is able to follow simple commands such as finger to nose test, strength test, field accommodation. The MRI of the brain showed no acute intracranial abnormality, nonspecific small solitary white matter changein the left insula which represent chronic microangiopathic change, gliosis, or olf infarct. Mild global parenchymal volume loss advanced for patient age. There was no untoward events overnight. Objective - Vital Signs/Intake and Output Vital Signs (last 24 hours): Temp Pulse Resp BP Pulse Ox 97.5 F L 63 20 120/69 96 09/27/17 07:30 09/27/17 07:30 09/27/17 07:30 09/27/17 07:30 09/27/17 07:30 Intake and Output: 09/27/17 09/27/17 06:59 18:59 Output Total 600 Balance -600 - Medications Medications: Current Medications Albuterol (Ventolin Hfa 90 Mcg/Actuation (8 G)) 2 puff IH Q4 PRN PRN Reason: Shortness of Breath Darunavir (Prezista) 800 mg PO DAILY [facility] Last Admin: 09/27/17 09:23 Dose: 800 mg Dolutegravir Sodium (Tivicay) 50 mg PO DAILY [facility] Last Admin: 09/27/17 09:24 Dose: 50 mg Escitalopram Oxalate (Lexapro) 5 mg PO DAILY [facility] Last Admin: 09/27/17 09:24 Dose: 5 mg Piperacillin Sod/Tazobactam Sod (Zosyn 3.375 Gm Iv Premix) 3.375 gm in 50 mls @ 100 mls/hr IVPB Q6H [facility] Last Admin: 09/27/17 09:05 Dose: 100 mls/hr Vancomycin/Sodium Chloride (Vancomycin 1 Gm/Ns 200 Ml) 1 gm in 200 mls @ 166.6 mls/hr IVPB Q12H [facility] Stop: 09/29/17 14:31 Last Admin: 09/27/17 02:14 Dose: 166.6 mls/hr Mirtazapine (Remeron) 15 mg PO [facility] Last Admin: 09/26/17 22:23 Dose: 15 mg Mupirocin (Bactroban Ointment) 0 gm TOP BID [facility] Last Admin: 09/27/17 09:24 Dose: 1 applic Oxycodone HCl (Oxycodone Immediate Release Tab) 5 mg PO Q6 PRN PRN Reason: Pain, severe (8-10) Last Admin: 09/27/17 11:36 Dose: 5 mg Propranolol HCl (Inderal) 20 mg PO HS [facility] Last Admin: 09/26/17 22:34 Dose: 20 mg Ritonavir (Norvir) 100 mg PO DAILY [facility] Last Admin: 09/27/17 09:23 Dose: 100 mg Silver Sulfadiazine (Silvadene 1% 20 Gm) 1 ea TOP BID [facility] Last Admin: 09/27/17 09:25 Dose: Not Given - Labs Labs: 09/27/17 07:06 09/27/17 07:06 - Constitutional Appears: No Acute Distress - Head Exam Head Exam: NORMAL INSPECTION - GI/Abdominal Exam GI & Abdominal Exam: Distended, Normal Bowel Sounds - Neurological Exam Neurological Exam: Alert, Awake Neuro motor strength exam: Left Upper Extremity: 5, Right Upper Extremity: 5, Left Lower Extremity: 4, Right Lower Extremity: 4 Additional comments: He is alert, oriented to place ( [facility]), but not to time and person. He denies any headache, blurred vision, diplopia, but complains of pain in his abdominal area. He is able to follow simple commands such as finger to nose test , strength test, field accommodation. Assessment and Plan (1) Toxic metabolic encephalopathy Assessment & Plan: Case discussed with Dr. Staton, continue all current medical therapy. There is no new recommendations from neurology. Status: Acute
--- NOTE | 2017-09-27 15:32 | PCM.PYCHPN ---
Psychiatric Progress Note - Psychiatric Progress Note Patient seen today, length of contact: 16 min Patient Chief Complaint: "I don't feel right" Problems Identified/Issues Discussed: The pt is seen, chart reviewed, case discussed with staff. Patient is very lethargic and not lucid. He is in and out of orientation - was oriented when we questioned but with mistakes and lots of mental effort and time. He was able to repeat 3 objects but not in 5 minutes, which is significantly impaired for his age. r/o HIV-related dementia process The pt is compliant with medications and reports no side-effects. Symptoms are improving but needs more time to stabilize. After care discussed, support and psychoeducation given. Supervisor Aircraft Cleaning does not believe he can live on his own like this at this point. Medication Change: Yes Medical Record Reviewed: Yes Mental Status Examination - Cognitive Function Orientation: Person, Situation Memory: Impaired Attention: Poor Concentration: Poor Association: Loose Fund of Knowledge: Poor - Mood Mood: Neutral - Affect Affect: Blunted - Speech Speech: Slurred - Language Language: Word Retrieval - Formal Thought Process Formal Thought Process: Loosening of associations, Circumstantial, Perservation - Suicidal Ideation Suicidal Ideation: No - Homicidal Ideation Homicidal Ideation: No Goal/Treatment Plan - Goal/Treatment Plan Need for Continued Stay: Discharge may exacerbated symptoms, Severe functional impairment Progress Toward Problem(s) and Goals/Treatment Plan: Patient is on Lexapro 5mg and Remeron 15mg gabapentin is held due to sedation Psychoeducation and support rule out underlying conditions for delirium, likely secondary to HIV
[2017-09-27] MEDS ORDERED: Albuterol HFA 90 mcg/actuation (8 g) IH PRN (17:30)
[2017-09-27] MEDS ORDERED: Potassium Chloride 20 mEq ER Tab PO ONE (18:00)
--- NOTE | 2017-09-27 22:41 | CP.PCM.PN ---
Subjective - Date & Time of Evaluation Date of Evaluation: 09/27/17 Time of Evaluation: 18:30 - Subjective Subjective: Pt is complaining of leg pain and abdominal pain, he had bowel movement Objective - Vital Signs/Intake and Output Vital Signs (last 24 hours): Temp Pulse Resp BP Pulse Ox 98 F 66 20 145/76 95 09/27/17 16:09 09/27/17 22:33 09/27/17 16:09 09/27/17 22:33 09/27/17 16:09 - Medications Medications: Current Medications Albuterol (Ventolin Hfa 90 Mcg/Actuation (8 G)) 2 puff IH RQ4 PRN PRN Reason: Shortness of Breath Darunavir (Prezista) 800 mg PO DAILY [facility] Last Admin: 09/27/17 09:23 Dose: 800 mg Dolutegravir Sodium (Tivicay) 50 mg PO DAILY [facility] Last Admin: 09/27/17 09:24 Dose: 50 mg Escitalopram Oxalate (Lexapro) 5 mg PO DAILY [facility] Last Admin: 09/27/17 09:24 Dose: 5 mg Piperacillin Sod/Tazobactam Sod (Zosyn 3.375 Gm Iv Premix) 3.375 gm in 50 mls @ 100 mls/hr IVPB Q6H [facility] Last Admin: 09/27/17 22:31 Dose: 100 mls/hr Vancomycin/Sodium Chloride (Vancomycin 1 Gm/Ns 200 Ml) 1 gm in 200 mls @ 166.6 mls/hr IVPB Q12H [facility] Stop: 09/29/17 14:31 Last Admin: 09/27/17 15:18 Dose: 166.6 mls/hr Mirtazapine (Remeron) 15 mg PO [facility] Last Admin: 09/27/17 22:32 Dose: 15 mg Mupirocin (Bactroban Ointment) 0 gm TOP BID [facility] Last Admin: 09/27/17 18:41 Dose: 1 applic Propranolol HCl (Inderal) 20 mg PO [facility] Last Admin: 09/27/17 22:33 Dose: 20 mg Ritonavir (Norvir) 100 mg PO DAILY [facility] Last Admin: 09/27/17 09:23 Dose: 100 mg Silver Sulfadiazine (Silvadene 1% 20 Gm) 1 ea TOP BID [facility] Last Admin: 09/27/17 18:41 Dose: 1 % - Labs Labs: 09/27/17 07:06 09/27/17 07:06 - Constitutional Appears: No Acute Distress - Head Exam Head Exam: ATRAUMATIC, NORMAL INSPECTION, NORMOCEPHALIC - Eye Exam Eye Exam: EOMI, Normal appearance, PERRL Pupil Exam: NORMAL ACCOMODATION, PERRL - Respiratory Exam Respiratory Exam: Clear to Ausculation Bilateral, NORMAL BREATHING PATTERN - Cardiovascular Exam Cardiovascular Exam: REGULAR RHYTHM, +S1, +S2. absent: Murmur - GI/Abdominal Exam GI & Abdominal Exam: Soft, Normal Bowel Sounds, Organomegaly. absent: Tenderness Assessment and Plan (1) Cellulitis of both feet Status: Acute (2) HCC (hepatocellular carcinoma) Status: Acute (3) Hepatitis C Status: Chronic (4) AIDS Status: Acute
[2017-09-28] MEDS: Vancomycin 1 gm/NS 200 ml 1 GM/200 ML BAG IVPB SCH (02:04)
[2017-09-28] MEDS: Piperacill/Tazo 3.375gm in Dex 3.375 GM/50 ML BAG IVPB SCH ×2 (04:00→08:43)
[2017-09-28 08:22] VITALS: BP 123/78; PULSE 65; TEMP 97.4
--- NOTE | 2017-09-28 13:47 | PCM.PYCHPN ---
Psychiatric Progress Note - Psychiatric Progress Note Patient seen today, length of contact: 19 min Patient Chief Complaint: "I want to leave" Problems Identified/Issues Discussed: The pt is seen, chart reviewed, case discussed with staff. The patient wanted to AMA leave because of allegedly not getting good care, i.e. pain medications, and the room was "cold" and "people were slow" Teacher Associate tried to convince him to stay and explained to risks of leaving AMA including worsening symptoms, seizures, infection and even . Teacher Associate also asked the CLINICAL TRIAL COORDINATOR to talk with the patient to convince him to stay, which he did, but to no avail. He was better than yesterday; more talkative, better affect, oriented 3 and somewhat faster processing. He knew his illnesses and consequences of no treatment. He said he would go to his sister and follow up outpatient. He was not homicidal, suicidal and he was not disoriented or agitated. Support given Cleared for discharge Medication Change: No Medical Record Reviewed: Yes Mental Status Examination - Cognitive Function Orientation: Person, Situation Memory: Impaired Attention: Poor Concentration: Poor Association: Loose Fund of Knowledge: Poor - Mood Mood: Neutral - Affect Affect: Constricted - Speech Speech: Appropriate, Soft - Language Language: Word Retrieval - Formal Thought Process Formal Thought Process: Circumstantial - Suicidal Ideation Suicidal Ideation: No - Homicidal Ideation Homicidal Ideation: No Goal/Treatment Plan - Goal/Treatment Plan Progress Toward Problem(s) and Goals/Treatment Plan: Cleared by psych has capacity to refuse tx Will return to ER if needed
[2017-09-28 18:16] VITALS: O2SAT 94
--- NOTE | 2017-09-28 21:08 | CP.PCM.DIS ---
Provider - Provider Date of Admission: 09/23/17 19:03 Attending physician: Adebayo Aldridge MD Diagnosis - Discharge Diagnosis (1) Cellulitis of both feet Status: Acute (2) HCC (hepatocellular carcinoma) Status: Acute (3) Hepatitis C Status: Chronic (4) AIDS Status: Acute Hospital Course - Lab Results Lab Results: Most Recent Lab Values WBC 8.6 K/uL (4.8-10.8) 09/27/17 07:06 RBC 3.81 Mil/uL (4.40-5.90) L 09/27/17 07:06 Hgb 12.9 g/dL (12.0-18.0) 09/27/17 07:06 Hct 37.0 % (35.0-51.0) 09/27/17 07:06 MCV 97.0 fL (80.0-94.0) H 09/27/17 07:06 MCH 33.9 pg (27.0-31.0) H 09/27/17 07:06 MCHC 34.9 g/dL (33.0-37.0) 09/27/17 07:06 RDW 15.3 % (11.5-14.5) H 09/27/17 07:06 Plt Count 147 K/uL (130-400) 09/27/17 07:06 MPV 8.8 fL (7.2-11.7) 09/27/17 07:06 Neut % (Auto) 65.2 % (50.0-75.0) 09/27/17 07:06 Lymph % (Auto) 23.3 % (20.0-40.0) 09/27/17 07:06 Ralls % (Auto) 10.8 % (0.0-10.0) H 09/27/17 07:06 Eos % (Auto) 0.2 % (0.0-4.0) 09/27/17 07:06 Baso % (Auto) 0.5 % (0.0-2.0) 09/27/17 07:06 Neut # 5.6 K/uL (1.8-7.0) 09/27/17 07:06 Lymph # 2.0 K/uL (1.0-4.3) 09/27/17 07:06 Ralls # 0.9 K/uL (0.0-0.8) H 09/27/17 07:06 Eos # 0.0 K/uL (0.0-0.7) 09/27/17 07:06 Baso # 0.0 K/uL (0.0-0.2) 09/27/17 07:06 Sodium 131 mmol/L (132-148) L 09/27/17 07:06 Potassium 3.5 mmol/L (3.6-5.2) L 09/27/17 07:06 Chloride 101 mmol/L (98-107) 09/27/17 07:06 Carbon Dioxide 27 mmol/L (22-30) 09/27/17 07:06 Anion Gap 7 (10-20) L 09/27/17 07:06 BUN 20 mg/dL (9-20) 09/27/17 07:06 Creatinine 0.6 mg/dL (0.8-1.5) L 09/27/17 07:06 Est GFR ( Amer) > 60 09/27/17 07:06 Est GFR (Non-Af Amer) > 60 09/27/17 07:06 POC Glucose (mg/dL) < 20 mg/dL (65-110) L* 09/28/17 20:53 Random Glucose 91 mg/dL (75-110) 09/27/17 07:06 Calcium 7.2 mg/dl (8.6-10.4) L 09/27/17 07:06 Phosphorus 3.1 mg/dL (2.5-4.5) 09/27/17 07:06 Magnesium 1.7 mg/dL (1.6-2.3) 09/27/17 07:06 Total Bilirubin 3.0 mg/dL (0.2-1.3) H 09/27/17 07:06 AST 128 U/L (17-59) H 09/27/17 07:06 ALT 38 U/L (21-72) 09/27/17 07:06 Alkaline Phosphatase 293 U/L (38-126) H 09/27/17 07:06 Troponin I < 0.0120 ng/mL (0.00-0.120) 09/23/17 17:09 NT-Pro-B Natriuret Pep 654 pg/mL (0-900) 09/23/17 17:09 Total Protein 5.8 g/dL (6.3-8.3) L 09/27/17 07:06 Albumin 2.1 g/dL (3.5-5.0) L 09/27/17 07:06 Globulin 3.7 gm/dL (2.2-3.9) 09/27/17 07:06 Albumin/Globulin Ratio 0.6 (1.0-2.1) L 09/27/17 07:06 - Hospital Course Hospital Course: The patient wanted to AMA leave because of allegedly not getting good care, i.e. pain medications, and the room was "cold" and "people were slow" Energy Efficiency Engineer tried to convince him to stay and explained to risks of leaving AMA including worsening symptoms, seizures, infection and even . Energy Efficiency Engineer also asked the TREATMENT SPECIALIST to talk with the patient to convince him to stay, which he did, but to no avail. He was better than yesterday; more talkative, better affect, oriented 3 and somewhat faster processing. He knew his illnesses and consequences of no treatment. He said he would go to his sister and follow up outpatient. He was not homicidal, suicidal and he was not disoriented or agitated. Support given Cleared for discharge Discharge Exam - Head Exam Head Exam: ATRAUMATIC, NORMAL INSPECTION, NORMOCEPHALIC Discharge Plan - Follow Up Plan Condition: STABLE Disposition: AGAINST MEDICAL ADVICE
== END 2017-09-28 11:55 | disposition left against medical advice (07) | DRG 713 ==
LOC: C.ER 15:20 → C.9E 19:03 → C.5S 22:19
PROVIDERS: ADMIT Internal Medicine; ATTEND Internal Medicine
DX: B20 Human immunodeficiency virus [HIV] disease (principal); L03.115 Cellulitis of right lower limb; G92 Toxic encephalopathy; K74.0 Hepatic fibrosis; C22.0 Liver cell carcinoma; L03.116 Cellulitis of left lower limb; B18.2 Chronic viral hepatitis C; K74.60 Unspecified cirrhosis of liver; F17.210 Nicotine dependence, cigarettes, uncomplicated; F41.9 Anxiety disorder, unspecified; J45.909 Unspecified asthma, uncomplicated; K52.9 Noninfective gastroenteritis and colitis, unspecified; M06.9 Rheumatoid arthritis, unspecified; M19.041 Primary osteoarthritis, right hand; M19.042 Primary osteoarthritis, left hand; Z79.899 Other long term (current) drug therapy; F32.9 Major depressive disorder, single episode, unspecified

== ENCOUNTER 2017-09-28 20:44 | Inpatient (IN) | payer MEDICAID ==
[2017-09-28 20:44] VITALS: BMI 27.1
[2017-09-28] MEDS ORDERED: Dextrose 50% SYRINGE Inj (50 ml) IV ONE ×2 (20:45→20:47)
[2017-09-28] MEDS ORDERED: Sodium Bicarbonate (8.4%) 50 Meq Syringe IV ONE (20:49)
[2017-09-28] MEDS ORDERED: Piperacillin/Tazobact 3.375 gm 100 ML IVPB STA (20:55)
[2017-09-28] MEDS ORDERED: Sodium Chloride 0.9% 1,000 ML IV ONE ×2 (20:56→22:01)
--- NOTE | 2017-09-28 21:00 | C.PDOC ---
History Of Present Illness 52 year old male with PMHx of HIV and hepatocelular carcinoma brought to the ED via BLS for cardiac arrest. Patient presents from home with cardiac arrest with 20 minutes downtime. Upon arrival patient was intubated noted to be hypoglycemic dextrose given, second epi and bicarb given. ROSC obtained Time Seen by Provider: 09/28/17 20:52 Chief Complaint (Nursing): Cardiac Arrest History Per: EMS Reason For Code Blue: Full Arrest Circumstances: Brought To ED By EMS Down-Time Before ACLS: Mins (20) Medications Given Prior To MD Arrival: Yes: Epinephrine, Sodium Bicarb - Initial Findings Mentation: Unresponsive Past Medical History Reviewed: Historical Data, Nursing Documentation, Vital Signs Vital Signs: Last Vital Signs Temp 91.3 F L 09/29/17 08:00 Pulse 39 L 09/29/17 10:04 Resp 24 09/29/17 10:04 BP 59/39 L 09/29/17 10:04 Pulse Ox 98 09/29/17 09:40 - Medical History PMH: Anxiety, Arthritis, Asthma, Back Problems, Depression, Hepatitis (c), HIV, Rheumatoid Arthritis (hands, knees, ankles) Denies: Chronic Kidney Disease Surgical History: Endoscopy Family History: States: Unknown Family Hx - Social History Hx Alcohol Use: No Hx Substance Use: Yes (Clean for 5 yrs. now) Review Of Systems Review Of Systems: ROS cannot be obtained secondary to pt's inabilty to answer questions. Physical Exam - Physical Exam Appears: Non-toxic, Other (Ill appearing) Skin: Normal Color, Warm, Dry Head: Atraumatic, Normacephalic Eye(s): bilateral: Other (pupild dialated, fixated) Nose: No Discharge, No Deformity Oral Mucosa: Moist Neck: Normal ROM, Supple Respiratory: Normal Breath Sounds, No Rales, No Rhonchi, No Wheezing Gastrointestinal/Abdominal: Soft, No Tenderness, Distention Extremity: Normal ROM, No Calf Tenderness, No Deformity, No Swelling ED Course And Treatment - Laboratory Results Result Diagrams: 09/29/17 06:52 09/29/17 06:52 ECG: Interpreted By Me, Viewed By Me ECG Rhythm: Sinus Bradycardia Rate From EC Medical Decision Making Medical Decision Making: Impression: BLS brought cardiac arrest from home 20 min downtime rosc s/p 2 epi , dextrose, bicarb Plan: * VBG * Labs * CXR * Blood culture * UA * Zosyn 3.3.75 in NS 100 ml IVPB * IV fluids * Vacomycin 1 gm in 250 ml IVPB during course of ed, pt with noted blood from ng tube. noted re cent ct neg for varices, (+)h/o of pud. guiac pos, oneg blood ordered, protonix ordered, pt became hypotensive, tachycardic. case discussed with dr aldridge , dr pineda and dr flynn. dr flynn accepts icu. pt intially hemdynacmiclay stable post rosc , however later hypotensive. dopamine intiated. spoke to family, notfiied of poor prognosis. request full code at this time. Disposition - Disposition Disposition: HOSPITALIZED Disposition Time: 09:00 Condition: CRITICAL - Clinical Impression Clinical Impression: Cardiac arrest, HCC (hepatocellular carcinoma), GI bleed, Sepsis Critical Care Time - Critical Care Note Total Time (in mins): 45 Documented critical care: time excludes all time spent performing seperately billable procedures. - Scribe Statement The provider has reviewed the documentation as recorded by the Scribe Gregg Boyd All medical record entries made by the Scribe were at my direction and personally dictated by me. I have reviewed the chart and agree that the record accurately reflects my personal performance of the history, physical exam, medical decision making, and the department course for this patient. I have also personally directed, reviewed, and agree with the discharge instructions and disposition. Decision To Admit - Pt Status Changed To: Hospital Disposition Of: Inpatient - Admit Certification Admit to Inpatient:: After my assessment, the patient will require hospitalization for at least two midnights. This is because of the severity of symptoms shown, intensity of services needed, and/or the medical risk in this patient being treated as an outpatient. - InPatient: Physician Admission Certification:: needs icu - . Bed Request Type: ICU Admitting Physician: Adebayo Aldridge Patient Diagnosis: Cardiac arrest, HCC (hepatocellular carcinoma), GI bleed, Sepsis
[2017-09-28 21:07] LABS: BASO # 0.4 K/uL (0.0-0.2); BASO % 1.4 % (0.0-2.0); EOS % 0.1 % (0.0-4.0); LYMPH # 7.8 K/uL (1.0-4.3); LYMPH % 25.4 % (20.0-40.0); MEAN CELL VOLUME 101.2 fL (80.0-94.0); MEAN CORPUSCULAR HEMOGLOBIN 31.1 pg (27.0-31.0); MEAN CORPUSCULAR HGB CONC 30.8 g/dL (33.0-37.0); MEAN PLATELET VOLUME 8.1 fL (7.2-11.7); MONO # 1.7 K/uL (0.0-0.8); MONO % 5.4 % (0.0-10.0); NEUT # 20.9 K/uL (1.8-7.0); NEUT % 67.7 % (50.0-75.0); NRBC % 0.4 % (0.0-2.0); RBC 2.86 Mil/uL (4.40-5.90)
[2017-09-28 21:14] LABS: HEMOGLOBIN 8.9 g/dL (12.0-18.0); WHITE BLOOD COUNT 30.8 K/uL (4.8-10.8)
[2017-09-28] MEDS ORDERED: Sodium Bicarbonate (8.4%) 50 Meq Syringe IVP ONE (21:22)
[2017-09-28] MEDS ORDERED: Dextrose 50% SYRINGE Inj (50 ml) IV STA ×3 (21:22→21:29)
[2017-09-28] MEDS ORDERED: EPINEPHrine 1 mg/ml (1:1000) Inj IV ONE (21:22)
[2017-09-28 21:28] LABS: ALB/GLOB RATIO 0.6 (1.0-2.1); ALT/SGPT 106 U/L (21-72); BLOOD UREA NITROGEN 30 mg/dL (9-20); CK-MB 10.3 ng/mL (0.0-3.38); GFR AFRICAN-AMERICAN 59; GFR NON-AFRICAN AMERICAN 49; HDL CHOLESTEROL < 5 mg/dL (30-70)
[2017-09-28] MEDS ORDERED: Calcium Gluconate 4.65 mEq/10 ml Inj IVP ONE (21:29)
[2017-09-28] MEDS ORDERED: (Novolin R) Insulin Human Regular 100 units/ml vial IV STA (21:29)
[2017-09-28 21:30] LABS: LDL CHOLESTEROL 30 mg/dL (0-129)
[2017-09-28 21:33] LABS: AST/SGOT 423 U/L (17-59); LIPASE 2273 U/L (23-300)
[2017-09-28] MEDS ORDERED: (Novolin R) Insulin Human Regular 100 units/ml vial ONE (21:51)
[2017-09-28 22:00] LABS: ABG ALLEN TEST UNABLE; ARTERIAL BLOOD GAS HCO3 12.2 mmol/L (21-28); ARTERIAL BLOOD GAS O2 SAT 100.9 % (95-98); ARTERIAL BLOOD GAS PCO2 34 mm/Hg (35-45); ARTERIAL BLOOD GAS PH 7.14 (7.35-7.45); ARTERIAL BLOOD GAS PO2 339 mm/Hg (80-100); ARTERIAL BLOOD GAS TCO2 12.6 mmol/L (22-28)
[2017-09-28] MEDS ORDERED: Piperacill/Tazo 3.375gm in Dex 3.375 GM/50 ML BAG IVPB ONE (22:00)
[2017-09-28] MEDS ORDERED: Pantoprazole 80 MG in Sodium Chloride 0.9% 100 ML IVP SCH (22:00)
[2017-09-28] MEDS ORDERED: Vancomycin 1 gm/NS 200 ml 1 GM/200 ML BAG IVPB ONE (22:00)
[2017-09-28] MEDS: DOPamine 400mg/250ml D5W 400 MG/250 ML BAG IV PRN ×2 (22:10→23:45)
--- NOTE | 2017-09-29 00:34 | CP.PCM.CON ---
History of Present Illness - History of Present Illness History of Present Illness: 52 M with h/o HCC, hiv on ARVT, h/o peptic ulcer disease, h/o umbilical hernia, recent hospitalization for confusion, signed out ama on 09/28/17 in the afternoon. Patient's family found him unresponsive, witnessed. Patient found by BLS pulseless, brought in being bagged, intubated in ER, PEA on the monitor and received epi x2 with CPR then ROSC. Patient in ER found to be having active GI bleeding, bright red blood, on NG suction about 250 ml, drop in hemoglobin from 12-9. Patient post ROSC hypotensive received 3lit saline, and receiving 1 unit prbc, on dopamine drip 10mcg. Unresponsive, breathing over vent, no corneal or conjunctival reflex. Patient was hypoglycemic and hyperkalemic in the intial labs in ER which was treated. PMH/PSH as above, being evaluated for liver transplant Meds reviewed Recent medical records reviewed Central line done by me in Right IJ as emergent procedure, due to refractory shock needing more access. Ex , and son's at bed side, I explained them that from above story and clinical exam patient patient likely has suffered significant brain and other tissue injury. As per the family at the bedside patient's sister will be the primary decision maker and was being reached by the family. Review of Systems - Review of Systems All systems: reviewed and no additional remarkable complaints except (HPI) Past Patient History - Past Medical History & Family History Past Medical History?: Yes - Past Social History Smoking Status: Light Smoker < 10 Cigarettes Daily Alcohol: None Home Situation {Lives}: With Family Domestic Violence: Negative - CARDIAC Hx Cardiac Disorders: No - PULMONARY Hx Asthma: Yes - NEUROLOGICAL Hx Neurological Disorder: Yes Hx Dizziness: Yes Other/Comment: NUMBNESS/CRAMPS LEGS - HEENT Hx HEENT Problems: No - RENAL Hx Chronic Kidney Disease: No - ENDOCRINE/METABOLIC Hx Endocrine Disorders: No - HEMATOLOGICAL/ONCOLOGICAL Hx Human Immunodeficiency Virus (HIV): Yes - INTEGUMENTARY Hx Dermatological Problems: No - MUSCULOSKELETAL/RHEUMATOLOGICAL Hx Arthritis: Yes Hx Rheumatoid Arthritis: Yes (hands, knees, ankles) - GASTROINTESTINAL Hx Gastrointestinal Disorders: No - GENITOURINARY/GYNECOLOGICAL Hx Genitourinary Disorders: No - PSYCHIATRIC Hx Anxiety: Yes Hx Depression: Yes Hx Substance Use: Yes (Clean for 5 yrs. now) - SURGICAL HISTORY Hx Surgeries: Yes - ANESTHESIA Hx Anesthesia: Yes Hx Anesthesia Reactions: No Hx Malignant Hyperthermia: No Meds Allergies/Adverse Reactions: Allergies Allergy/AdvReac Type Severity Reaction Status Date / Time No Known Allergies Allergy Verified 09/23/17 15:36 - Medications Medications: Current Medications Pantoprazole Sodium 80 mg/ (Sodium Chloride) 100 mls @ 10 mls/hr IVP .Q10H [facility] PRN Reason: 8 MG/HR Last Admin: 09/28/17 23:23 Dose: 10 mls/hr Piperacillin Sod/Tazobactam Sod (Zosyn 2.25 Gm Iv Premix) 2.25 gm in 50 mls @ 100 mls/hr IVPB Q6H [facility] Dopamine HCl/Dextrose (Dopamine 400mg/250ml D5w) 400 mg in 250 mls @ 5.783 mls/ hr IV .Q24H PRN; Protocol; 2 MCG/KG/MIN PRN Reason: TITRATE PER MD ORDER Last Admin: 09/28/17 22:10 Dose: 10 mcg/kg/min, 28.917 mls/hr Physical Exam - Additional Findings Additional findings: * HEENT no corneal, pupillary or conjunctival reflexes, mae bright blood from nose, og tube * Neck supple Right IJ central line by me * CVS regular * PA distended, no bs * Chest transmitted sounds form the ET * Ext no edema * Skin normal turgor, clammy, faint peripheral pulses. * MANAGER CR[employer]ICAL CARE UNIT Unresponsive, no corneal conjuctival, pupilary reflexes, breathing over the vent. Results - Vital Signs Recent Vital Signs: Last Vital Signs Temp 92.4 F L 09/28/17 23:00 Pulse 68 09/28/17 23:00 Resp 25 H 09/28/17 23:00 BP 84/37 L 09/28/17 23:00 Pulse Ox 100 09/28/17 23:00 - Labs Result Diagrams: 09/28/17 20:56 09/28/17 20:56 Labs: Laboratory Results - last 24 hr 09/28/17 09/28/17 09/28/17 20:56 20:56 20:58 WBC 30.8 H D RBC 2.86 L Hgb 8.9 L D Hct 29.0 L MCV 101.2 H D MCH 31.1 H MCHC 30.8 L RDW 17.0 H Plt Count 108 L D MPV 8.1 Neut % (Auto) 67.7 Lymph % (Auto) 25.4 [place] % (Auto) 5.4 Eos % (Auto) 0.1 Baso % (Auto) 1.4 Neut # 20.9 H Lymph # 7.8 H [place] # 1.7 H Eos # 0.0 Baso # 0.4 H Differential Comment Puncture Site pCO2 pO2 HCO3 ABG pH ABG Total CO2 ABG O2 Saturation ABG Base Excess Ferny Test ABG Potassium A-a O2 Difference Respiratory Index Glucose Lactate Vent Mode Mechanical Rate FiO2 Tidal Volume PEEP Crit Value Called To Crit Value Called By Crit Value Read Back Blood Gas Notified Time Sodium 135 Potassium 6.3 H* D Chloride 103 Carbon Dioxide 20 L Anion Gap 19 BUN 30 H Creatinine 1.5 Est GFR ( Amer) 59 Est GFR (Non-Af Amer) 49 POC Glucose (mg/dL) 210 H Random Glucose 28 L* D Calcium 8.0 L Total Bilirubin 3.0 H AST 423 H D ALT 106 H D Alkaline Phosphatase 291 H Total Creatine Kinase 858 H CK-MB (Mass) 10.3 H Troponin I 0.0260 Total Protein 5.4 L Albumin 2.0 L Globulin 3.4 Albumin/Globulin Ratio 0.6 L Triglycerides 85 Cholesterol 53 LDL Cholesterol Direct 30 HDL Cholesterol < 5 L Lipase 2273 H Arterial Blood Potassium Stool Occult Blood Alcohol, Quantitative < 10 Blood Type Antibody Screen 09/28/17 09/28/17 09/28/17 21:00 21:01 21:22 WBC RBC Hgb Hct MCV MCH MCHC RDW Plt Count MPV Neut % (Auto) Lymph % (Auto) [place] % (Auto) Eos % (Auto) Baso % (Auto) Neut # Lymph # [place] # Eos # Baso # Differential Comment Puncture Site pCO2 pO2 HCO3 ABG pH ABG Total CO2 ABG O2 Saturation ABG Base Excess Ferny Test ABG Potassium A-a O2 Difference Respiratory Index Glucose Lactate Vent Mode Mechanical Rate FiO2 Tidal Volume PEEP Crit Value Called To Crit Value Called By Crit Value Read Back Blood Gas Notified Time Sodium Potassium Chloride Carbon Dioxide Anion Gap BUN Creatinine Est GFR ( Amer) Est GFR (Non-Af Amer) POC Glucose (mg/dL) Random Glucose Calcium Total Bilirubin AST ALT Alkaline Phosphatase Total Creatine Kinase 851 H CK-MB (Mass) Troponin I Total Protein Albumin Globulin Albumin/Globulin Ratio Triglycerides Cholesterol LDL Cholesterol Direct HDL Cholesterol Lipase Arterial Blood Potassium Stool Occult Blood Positive H Alcohol, Quantitative Blood Type A NEGATIVE Antibody Screen Negative 09/28/17 21:56 WBC RBC Hgb Hct MCV MCH MCHC RDW Plt Count MPV Neut % (Auto) Lymph % (Auto) [place] % (Auto) Eos % (Auto) Baso % (Auto) Neut # Lymph # [place] # Eos # Baso # Differential Comment Puncture Site Lr pCO2 34 L pO2 339 H HCO3 12.2 L ABG pH 7.14 L* ABG Total CO2 12.6 L ABG O2 Saturation 100.9 H ABG Base Excess -16.4 L Ferny Test Unable ABG Potassium 5.2 A-a O2 Difference 332.0 Respiratory Index 1.0 Glucose 118 H Lactate 13.4 H* Vent Mode Prvc Mechanical Rate 14 FiO2 100.0 Tidal Volume 500 PEEP 5 Crit Value Called To Dr. fitch Crit Value Called By Josef figueroa Crit Value Read Back Y Blood Gas Notified Time 2200 Sodium 138.0 Potassium Chloride 108.0 H Carbon Dioxide Anion Gap BUN Creatinine Est GFR ( Amer) Est GFR (Non-Af Amer) POC Glucose (mg/dL) Random Glucose Calcium Total Bilirubin AST ALT Alkaline Phosphatase Total Creatine Kinase CK-MB (Mass) Troponin I Total Protein Albumin Globulin Albumin/Globulin Ratio Triglycerides Cholesterol LDL Cholesterol Direct HDL Cholesterol Lipase Arterial Blood Potassium 5.2 Stool Occult Blood Alcohol, Quantitative Blood Type Antibody Screen Assessment & Plan - Assessment and Plan (Free Text) Assessment: * Cardiac arrest down time 20 mins, brought in bls, intubated in ER, appears has significant anoxic damage, but will need to asses once stable euglycemia ensured * UGI bleed likely cause of above * Hypoglycemia and hyperkalemia noticed in ER * H/o Hepatocellular cancer * HIV + on ARVT * Recent lethargy and MS changes * Therapeutic hypothermia contraindicated due to active gi bleeding, but will avoid hyperthermia Plan: * PRBC, PLt, FFP as needed with monitoring blood * frequent monitoring from hypoglycemia, MS eval when with stable euglycemia. * F/u labs * Supportive care * Code status pending discussion with patient's sister, primary decision maker, being reached * GI eval
[2017-09-29 01:50] LABS: VENOUS BLOOD GAS BASE EXCESS -14.2 mmol/L (0.0-2.0); VENOUS BLOOD GAS PCO2 37 mmHg (40-60); VENOUS BLOOD GAS PO2 41 mm/Hg (30-55); VENOUS BLOOD PH 7.17 (7.32-7.43)
[2017-09-29 01:51] LABS: BASO # 0.3 K/uL (0.0-0.2); BASO % 0.9 % (0.0-2.0); EOS % 0.1 % (0.0-4.0); LYMPH # 2.7 K/uL (1.0-4.3); LYMPH % 7.2 % (20.0-40.0); MEAN CELL VOLUME 100.2 fL (80.0-94.0); MEAN CORPUSCULAR HEMOGLOBIN 30.8 pg (27.0-31.0); MEAN CORPUSCULAR HGB CONC 30.8 g/dL (33.0-37.0); MEAN PLATELET VOLUME 7.4 fL (7.2-11.7); MONO # 2.7 K/uL (0.0-0.8); MONO % 7.2 % (0.0-10.0); NEUT # 31.4 K/uL (1.8-7.0); NEUT % 84.6 % (50.0-75.0); NRBC % 0.4 % (0.0-2.0); PLATELET COUNT 71 K/uL (130-400); RBC 1.63 Mil/uL (4.40-5.90); RED CELL DISTRIBUTION WIDTH 16.8 % (11.5-14.5)
[2017-09-29 02:10] LABS: WHITE BLOOD COUNT 37.2 K/uL (4.8-10.8)
[2017-09-29] MEDS ORDERED: Dextrose 50% VIAL Inj (50 ml) IV STA (02:14)
[2017-09-29] MEDS ORDERED: Dextrose 50% VIAL Inj (50 ml) IV ONE (02:16)
[2017-09-29 02:52] LABS: MAGNESIUM 1.9 mg/dL (1.6-2.3)
[2017-09-29] MEDS: DOPamine 400mg/250ml D5W 400 MG/250 ML BAG IV PRN ×2 (03:38→08:25)
[2017-09-29] MEDS ORDERED: Piperacill/Tazo 2.25gm in Dex 2.25 GM/50 ML BAG IVPB SCH (04:00)
--- NOTE | 2017-09-29 04:22 | PCM.PROC ---
Procedures Attestation:: I certify that I have explained the specified Operation(s) or Procedure(s), risks, benefits and reasonable alternatives to the Patient and/or other person responsible. The opportunity was given to ask questions and all questions answered - Central Line Placement Right Internal Jugular Triple Lumen Catheter Aseptic technique was employed throughout the procedure: Hand Hygiene done prior to procedure, Full sterile barriers (mask, hair cover, sterile gown, sterile gloves), Full body sterile drape, Chloraprep Antiseptic: 30 second prep for IJ or SC sites CVP Time Out Performed: Yes Pt. Placed on Pulse Ox Monitor: Yes Central Line Prep: Chlorhexidine-Alcohol Combination Ultrasound Used for Placement: Yes Central Line Lumen Inserted: triple Central Line Length: 16 cm Post Procedure: Sutured in Place, Good Blood Return, All Ports Aspirated, Flushed, Capped, Sterile Dressing Applied Secured by: Suture Post procedure dressing: Chlorhexidine disc (Biopatch) Post Procedure X-Ray: Yes Patient Tolerated Procedure: Well Additional Comments: Done as patient was in shock, needing pressors, meds, blood products, done in emergency family not around for consent, but informed post procedure when arrived.
[2017-09-29 06:00] LABS: VENOUS BLOOD GAS BASE EXCESS -16.3 mmol/L (0.0-2.0); VENOUS BLOOD GAS PCO2 45 mmHg (40-60); VENOUS BLOOD GAS PO2 25 mm/Hg (30-55); VENOUS BLOOD PH 7.08 (7.32-7.43)
[2017-09-29] MEDS ORDERED: Sodium Bicarbonate (8.4%) 50 Meq Syringe ONE (06:08)
[2017-09-29] MEDS ORDERED: Sodium Bicarbonate 8.4% 150 MEQ in Dextrose 5% In Water 850 ML IV SCH (06:15)
[2017-09-29 06:30] LABS: ANISOCYTOSIS SLIGHT; BANDS 8 % (0-2); LYMPHOCYTE 7 % (20-40); MONOCYTE 5 % (0-10); NEUTROPHIL 80 % (50-75); PLATELET ESTIMATE DECREASED (NORMAL); TOTAL CELLS COUNTED 100
[2017-09-29 06:31] LABS: LARGE PLATELETS PRESENT; MICROCYTOSIS SLIGHT; OVALOCYTES SLIGHT; POLYCHROMIC SLIGHT
[2017-09-29 06:32] LABS: GIANT PLATELETS PRESENT; TEARDROP CELLS SLIGHT; TOXIC GRANULATION PRESENT
[2017-09-29] MEDS ORDERED: levETIRAcetam 1,000 MG in Sodium Chloride 0.9% 100 ML IVPB STA (06:37)
[2017-09-29 07:04] LABS: BASO # 0.1 K/uL (0.0-0.2); BASO % 0.3 % (0.0-2.0); HEMOGLOBIN 7.5 g/dL (12.0-18.0); LYMPH # 3.4 K/uL (1.0-4.3); LYMPH % 8.3 % (20.0-40.0); MEAN CELL VOLUME 96.1 fL (80.0-94.0); MEAN CORPUSCULAR HEMOGLOBIN 29.8 pg (27.0-31.0); MEAN PLATELET VOLUME 7.5 fL (7.2-11.7); MONO # 2.3 K/uL (0.0-0.8); MONO % 5.6 % (0.0-10.0); NEUT # 35.2 K/uL (1.8-7.0); NEUT % 85.8 % (50.0-75.0); NRBC % 0.1 % (0.0-2.0); PLATELET COUNT 65 K/uL (130-400); RBC 2.52 Mil/uL (4.40-5.90)
[2017-09-29] MEDS ORDERED: Pantoprazole 80 MG in Sodium Chloride 0.9% 100 ML IV SCH (07:15)
[2017-09-29 07:42] LABS: ALB/GLOB RATIO 0.6 (1.0-2.1); ALBUMIN 1.2 g/dL (3.5-5.0); CALCIUM 6.7 mg/dl (8.6-10.4); MAGNESIUM 1.9 mg/dL (1.6-2.3)
[2017-09-29] MEDS ORDERED: Sodium Bicarbonate (8.4%) 50 Meq Syringe IVP ONE (07:42)
--- NOTE | 2017-09-29 08:11 | RAD ---
HISTORY: ng tube COMPARISON: Portable chest 09/28/2017 9:16 p.m.. FINDINGS: Right center venous lines in place by an apparent right internal jugular approach with tip terminating at the superior vena cava distally. A nasogastric tube is in place with tip terminating at the left upper quadrant abdomen. Further, endotracheal tube appears unchanged in position. External pacemaker again identified. LUNGS: No definitive infiltrate identified bilaterally. PLEURA: No pneumothorax or right pleural effusion appreciable. A convex inferior density seen the left apex suspicious for loculated pleural effusion. CT can confirm. CARDIOVASCULAR: Normal. OSSEOUS STRUCTURES: No significant abnormalities. VISUALIZED UPPER ABDOMEN: Normal. OTHER FINDINGS: None. IMPRESSION: Interval adequate right center venous line and nasogastric tube deployment. No pneumothorax or infiltrate identified. Likely loculated left apical pleural effusion identified in the interval.
[2017-09-29 08:32] LABS: ANISOCYTOSIS MODERATE; BANDS 12 % (0-2); HYPOCHROMIC SLIGHT; MONOCYTE 2 % (0-10); NEUTROPHIL 86 % (50-75); PLATELET ESTIMATE DECREASED (NORMAL); TOTAL CELLS COUNTED 100
[2017-09-29 08:33] LABS: BURR CELLS SLIGHT; LARGE PLATELETS PRESENT; OVALOCYTES SLIGHT; POIKILOCYTOSIS SLIGHT; POLYCHROMIC SLIGHT; SCHISTOCYTES SLIGHT; TOXIC GRANULATION PRESENT
[2017-09-29 08:34] LABS: GIANT PLATELETS PRESENT
--- NOTE | 2017-09-29 08:54 | CP.CCUPN ---
CCU Subjective - Physician Review Events Since Last Encounter (Free Text): 09/29/17 08:51 patient seen and examined at bedside s/p cardiac arrest Likely anoxic intubated maxed out on levo dopamine running as well family at bedside, condition discussed in detail prognosis grim CCU Objective - Vital Signs / Intake & Output Vital Signs (Last 4 hours): Vital Signs Pulse Resp BP Pulse Ox 09/29/17 08:25 99 H 16 90/43 L 100 09/29/17 08:10 84 17 100 09/29/17 08:05 81 17 86/48 L 09/29/17 08:00 86 17 100 09/29/17 07:50 90 16 88/55 L 100 09/29/17 07:40 92 H 15 100 09/29/17 07:35 94 H 14 94/47 L 100 09/29/17 07:30 93 H 21 100 09/29/17 07:21 94 H 15 82/52 L 91 L 09/29/17 07:20 129 H 18 71 L 09/29/17 07:10 120 H 15 100 09/29/17 07:05 121 H 12 104/67 100 09/29/17 07:00 124 H 13 100 09/29/17 06:50 107 H 13 99/42 L 09/29/17 06:40 91 H 23 100 09/29/17 06:35 82 13 107/64 100 09/29/17 06:30 101 H 18 99 09/29/17 06:21 107 H 13 98/49 L 100 09/29/17 06:20 106 H 14 93 L 09/29/17 06:10 148 H 10 L 100 09/29/17 06:00 152 H 15 09/29/17 05:56 150 H 15 106/87 70 L 09/29/17 05:50 149 H 15 76 L 09/29/17 05:40 149 H 16 09/29/17 05:35 131 H 17 66/38 L 09/29/17 05:30 133 H 19 99 09/29/17 05:20 79 19 73/37 L 09/29/17 05:10 77 19 97 09/29/17 05:05 76 19 75/36 L 09/29/17 05:00 76 21 99 Intake and Output (Last 8hrs): Intake & Output 09/28/17 09/29/17 09/29/17 22:59 06:59 14:59 Intake Total 557 250 Balance 557 250 Weight 170 lb 232 lb 5.875 oz Intake: IV 557 250 - Medications Active Medications: Active Medications Generic Name Dose Route Start Last Admin Trade Name Freq PRN Reason Stop Dose Admin Hydrocortisone Sodium Succinate 100 mg 09/29/17 08:00 09/29/17 08:28 Solu-Cortef IV 100 mg Q8H JOCELYN Administration Piperacillin Sod/Tazobactam Sod 2.25 gm in 50 mls @ 100 mls/hr 09/29/17 04:00 Zosyn 2.25 Gm Iv Premix IVPB Q6H JOCELYN Dopamine HCl/Dextrose 400 mg in 250 mls @ 5.783 mls/hr 09/29/17 00:09 08:25 Dopamine 400mg/250ml D5w IV 20 mcg/kg/min .Q24H PRN 57.833 mls/hr TITRATE PER MD ORDER Administration Protocol 2 MCG/KG/MIN Norepinephrine Bitartrate 4 mg 254 mls @ 15.24 mls/hr 09/29/17 02:15 04:24 / Dextrose IV 30 mcg/min .[id number] PRN 114.3 mls/hr TITRATE PER MD ORDER Titration Protocol 4 MCG/MIN Sodium Bicarbonate 150 meq/ 1,000 mls @ 200 mls/hr 09/29/17 06:15 09/29/17 07 :47 Dextrose IV 200 mls/hr .Q5H JOCELYN Administration Pantoprazole Sodium 80 mg/ 100 mls @ 10 mls/hr 09/29/17 07:15 09/29/17 08:05 Sodium Chloride IV 10 mls/hr .Q10H JOCELYN Administration 8 MG/HR - Patient Studies Lab Studies: Lab Studies 09/29/17 09/29/17 09/29/17 Range/Units 06:52 06:52 05:50 WBC 41.0 H* (4.8-10.8) K/uL RBC 2.52 L (4.40-5.90) Mil/uL Hgb 7.5 L D (12.0-18.0) g/dL Hct 24.2 L (35.0-51.0) % MCV 96.1 H D (80.0-94.0) fL MCH 29.8 (27.0-31.0) pg MCHC 31.0 L (33.0-37.0) g/dL RDW 18.0 H (11.5-14.5) % Plt Count 65 L (130-400) K/uL MPV 7.5 (7.2-11.7) fL Neut % (Auto) 85.8 H (50.0-75.0) % Lymph % (Auto) 8.3 L (20.0-40.0) % [place] % (Auto) 5.6 (0.0-10.0) % Eos % (Auto) 0.0 (0.0-4.0) % Baso % (Auto) 0.3 (0.0-2.0) % Neut # 35.2 H (1.8-7.0) K/uL Lymph # 3.4 (1.0-4.3) K/uL [place] # 2.3 H (0.0-0.8) K/uL Eos # 0.0 (0.0-0.7) K/uL Baso # 0.1 (0.0-0.2) K/uL Neutrophils % (Manual) 86 H (50-75) % Band Neutrophils % 12 H* (0-2) % Lymphocytes % (Manual) TEST NOT PERFORMED (20-40) % Monocytes % (Manual) 2 (0-10) % Differential Comment Toxic Granulation Present Platelet Estimate Decreased L (NORMAL) Large Platelets Present Giant Platelets Present Polychromasia Slight Hypochromasia (manual) Slight Poikilocytosis (manual Slight Anisocytosis (manual) Moderate Microcytosis (manual) Tear Drop Cells Ovalocytes Slight [place] Cells Slight Schistocytes Slight Puncture Site pCO2 (35-45) mm/Hg pO2 25 L (80-100) mm/Hg HCO3 (21-28) mmol/L ABG pH (7.35-7.45) ABG Total CO2 (22-28) mmol/L ABG O2 Saturation (95-98) % ABG Base Excess (-2.0-3.0) mmol/L Ferny Test ABG Potassium (3.6-5.2) mmol/L VBG pH 7.08 L* (7.32-7.43) VBG pCO2 45 (40-60) mmHg VBG HCO3 10.2 mmol/L VBG Total CO2 14.7 L (22-28) mmol/L VBG O2 Sat (Calc) 45.6 (40-65) % VBG Base Excess -16.3 L (0.0-2.0) mmol/L VBG Potassium 5.8 H (3.6-5.2) mmol/L A-a O2 Difference mm/Hg Respiratory Index Glucose 114 H (75-110) mg/dl Lactate 12.4 H* (0.7-2.1) mmol/L Vent Mode Mechanical Rate FiO2 % Tidal Volume PEEP Crit Value Called To Evita montez/rn Crit Value Called By Artis fernandez/rt Crit Value Read Back Y Blood Gas Notified Time 605 Sodium 134 137.0 (132-148) mmol/L Potassium 5.8 H (3.6-5.2) mmol/L Chloride 108 H 108.0 H (98-107) mmol/L Carbon Dioxide 14 L (22-30) mmol/L Anion Gap 17 (10-20) BUN 28 H (9-20) mg/dL Creatinine 1.6 H (0.8-1.5) mg/dL Est GFR ( Amer) 55 Est GFR (Non-Af Amer) 45 POC Glucose (mg/dL) (65-110) mg/dL Random Glucose 104 (75-110) mg/dL Lactic Acid (0.7-2.1) mmol/L Calcium 6.7 L (8.6-10.4) mg/dl Phosphorus 8.0 H (2.5-4.5) mg/dL Magnesium 1.9 (1.6-2.3) mg/dL Total Bilirubin 3.6 H (0.2-1.3) mg/dL AST 6496 H (17-59) U/L ALT 1587 H (21-72) U/L Alkaline Phosphatase 549 H D (38-126) U/L Total Creatine Kinase (55-170) U/L CK-MB (Mass) (0.0-3.38) ng/mL Troponin I (0.00-0.120) ng/mL Total Protein 3.1 L (6.3-8.3) g/dL Albumin 1.2 L (3.5-5.0) g/dL Globulin 1.9 L (2.2-3.9) gm/dL Albumin/Globulin Ratio 0.6 L (1.0-2.1) Triglycerides (0-149) mg/dL Cholesterol (0-199) mg/dL LDL Cholesterol Direct (0-129) mg/dL HDL Cholesterol (30-70) mg/dL Lipase (23-300) U/L Arterial Blood Potassium (3.6-5.2) mmol/L Venous Blood Potassium 5.8 H (3.6-5.2) mmol/L Stool Occult Blood (NEGATIVE) Alcohol, Quantitative (0-10) mg/dl Blood Type Antibody Screen 09/29/17 09/29/17 09/29/17 Range/Units 05:13 03:30 03:10 WBC (4.8-10.8) K/uL RBC (4.40-5.90) Mil/uL Hgb (12.0-18.0) g/dL Hct (35.0-51.0) % MCV (80.0-94.0) fL MCH (27.0-31.0) pg MCHC (33.0-37.0) g/dL RDW (11.5-14.5) % Plt Count (130-400) K/uL MPV (7.2-11.7) fL Neut % (Auto) (50.0-75.0) % Lymph % (Auto) (20.0-40.0) % [place] % (Auto) (0.0-10.0) % Eos % (Auto) (0.0-4.0) % Baso % (Auto) (0.0-2.0) % Neut # (1.8-7.0) K/uL Lymph # (1.0-4.3) K/uL [place] # (0.0-0.8) K/uL Eos # (0.0-0.7) K/uL Baso # (0.0-0.2) K/uL Neutrophils % (Manual) (50-75) % Band Neutrophils % (0-2) % Lymphocytes % (Manual) (20-40) % Monocytes % (Manual) (0-10) % Differential Comment Toxic Granulation Platelet Estimate (NORMAL) Large Platelets Giant Platelets Polychromasia Hypochromasia (manual) Poikilocytosis (manual Anisocytosis (manual) Microcytosis (manual) Tear Drop Cells Ovalocytes Brit Cells Schistocytes Puncture Site pCO2 (35-45) mm/Hg pO2 (80-100) mm/Hg HCO3 (21-28) mmol/L ABG pH (7.35-7.45) ABG Total CO2 (22-28) mmol/L ABG O2 Saturation (95-98) % ABG Base Excess (-2.0-3.0) mmol/L Ferny Test ABG Potassium (3.6-5.2) mmol/L VBG pH (7.32-7.43) VBG pCO2 (40-60) mmHg VBG HCO3 mmol/L VBG Total CO2 (22-28) mmol/L VBG O2 Sat (Calc) (40-65) % VBG Base Excess (0.0-2.0) mmol/L VBG Potassium (3.6-5.2) mmol/L A-a O2 Difference mm/Hg Respiratory Index Glucose (75-110) mg/dl Lactate (0.7-2.1) mmol/L Vent Mode Mechanical Rate FiO2 % Tidal Volume PEEP Crit Value Called To Crit Value Called By Crit Value Read Back Blood Gas Notified Time Sodium (132-148) mmol/L Potassium (3.6-5.2) mmol/L Chloride (98-107) mmol/L Carbon Dioxide (22-30) mmol/L Anion Gap (10-20) BUN (9-20) mg/dL Creatinine (0.8-1.5) mg/dL Est GFR ( Amer) Est GFR (Non-Af Amer) POC Glucose (mg/dL) 120 H 128 H (65-110) mg/dL Random Glucose (75-110) mg/dL Lactic Acid 11.6 H* (0.7-2.1) mmol/L Calcium (8.6-10.4) mg/dl Phosphorus (2.5-4.5) mg/dL Magnesium (1.6-2.3) mg/dL Total Bilirubin (0.2-1.3) mg/dL AST (17-59) U/L ALT (21-72) U/L Alkaline Phosphatase (38-126) U/L Total Creatine Kinase (55-170) U/L CK-MB (Mass) (0.0-3.38) ng/mL Troponin I (0.00-0.120) ng/mL Total Protein (6.3-8.3) g/dL Albumin (3.5-5.0) g/dL Globulin (2.2-3.9) gm/dL Albumin/Globulin Ratio (1.0-2.1) Triglycerides (0-149) mg/dL Cholesterol (0-199) mg/dL LDL Cholesterol Direct (0-129) mg/dL HDL Cholesterol (30-70) mg/dL Lipase (23-300) U/L Arterial Blood Potassium (3.6-5.2) mmol/L Venous Blood Potassium (3.6-5.2) mmol/L Stool Occult Blood (NEGATIVE) Alcohol, Quantitative (0-10) mg/dl Blood Type Antibody Screen 09/29/17 09/29/17 09/29/17 Range/Units 02:15 01:48 01:48 WBC 37.2 H* (4.8-10.8) K/uL RBC 1.63 L (4.40-5.90) Mil/uL Hgb 5.0 L* D (12.0-18.0) g/dL Hct 16.3 L (35.0-51.0) % MCV 100.2 H (80.0-94.0) fL MCH 30.8 (27.0-31.0) pg MCHC 30.8 L (33.0-37.0) g/dL RDW 16.8 H (11.5-14.5) % Plt Count 71 L D (130-400) K/uL MPV 7.4 (7.2-11.7) fL Neut % (Auto) 84.6 H (50.0-75.0) % Lymph % (Auto) 7.2 L (20.0-40.0) % [place] % (Auto) 7.2 (0.0-10.0) % Eos % (Auto) 0.1 (0.0-4.0) % Baso % (Auto) 0.9 (0.0-2.0) % Neut # 31.4 H (1.8-7.0) K/uL Lymph # 2.7 (1.0-4.3) K/uL [place] # 2.7 H (0.0-0.8) K/uL Eos # 0.0 (0.0-0.7) K/uL Baso # 0.3 H (0.0-0.2) K/uL Neutrophils % (Manual) 80 H (50-75) % Band Neutrophils % 8 H (0-2) % Lymphocytes % (Manual) 7 L (20-40) % Monocytes % (Manual) 5 (0-10) % Differential Comment Toxic Granulation Present Platelet Estimate Decreased L (NORMAL) Large Platelets Present Giant Platelets Present Polychromasia Slight Hypochromasia (manual) Poikilocytosis (manual Anisocytosis (manual) Slight Microcytosis (manual) Slight Tear Drop Cells Slight Ovalocytes Slight [place] Cells Schistocytes Puncture Site pCO2 (35-45) mm/Hg pO2 (80-100) mm/Hg HCO3 (21-28) mmol/L ABG pH (7.35-7.45) ABG Total CO2 (22-28) mmol/L ABG O2 Saturation (95-98) % ABG Base Excess (-2.0-3.0) mmol/L Ferny Test ABG Potassium (3.6-5.2) mmol/L VBG pH (7.32-7.43) VBG pCO2 (40-60) mmHg VBG HCO3 mmol/L VBG Total CO2 (22-28) mmol/L VBG O2 Sat (Calc) (40-65) % VBG Base Excess (0.0-2.0) mmol/L VBG Potassium (3.6-5.2) mmol/L A-a O2 Difference mm/Hg Respiratory Index Glucose (75-110) mg/dl Lactate (0.7-2.1) mmol/L Vent Mode Mechanical Rate FiO2 % Tidal Volume PEEP Crit Value Called To Crit Value Called By Crit Value Read Back Blood Gas Notified Time Sodium 135 (132-148) mmol/L Potassium 4.9 (3.6-5.2) mmol/L Chloride 108 H (98-107) mmol/L Carbon Dioxide 15 L (22-30) mmol/L Anion Gap 16 (10-20) BUN 27 H (9-20) mg/dL Creatinine 1.4 (0.8-1.5) mg/dL Est GFR ( Amer) > 60 Est GFR (Non-Af Amer) 53 POC Glucose (mg/dL) 55 L (65-110) mg/dL Random Glucose 57 L (75-110) mg/dL Lactic Acid (0.7-2.1) mmol/L Calcium 6.2 L (8.6-10.4) mg/dl Phosphorus 7.1 H (2.5-4.5) mg/dL Magnesium 1.9 (1.6-2.3) mg/dL Total Bilirubin 2.4 H (0.2-1.3) mg/dL AST (17-59) U/L ALT 820 H D (21-72) U/L Alkaline Phosphatase 268 H (38-126) U/L Total Creatine Kinase (55-170) U/L CK-MB (Mass) (0.0-3.38) ng/mL Troponin I (0.00-0.120) ng/mL Total Protein 2.8 L (6.3-8.3) g/dL Albumin 1.1 L D (3.5-5.0) g/dL Globulin 1.7 L (2.2-3.9) gm/dL Albumin/Globulin Ratio 0.6 L (1.0-2.1) Triglycerides (0-149) mg/dL Cholesterol (0-199) mg/dL LDL Cholesterol Direct (0-129) mg/dL HDL Cholesterol (30-70) mg/dL Lipase (23-300) U/L Arterial Blood Potassium (3.6-5.2) mmol/L Venous Blood Potassium (3.6-5.2) mmol/L Stool Occult Blood (NEGATIVE) Alcohol, Quantitative (0-10) mg/dl Blood Type Antibody Screen 09/29/17 09/29/17 09/28/17 Range/Units 01:46 01:05 21:56 WBC (4.8-10.8) K/uL RBC (4.40-5.90) Mil/uL Hgb (12.0-18.0) g/dL Hct (35.0-51.0) % MCV (80.0-94.0) fL MCH (27.0-31.0) pg MCHC (33.0-37.0) g/dL RDW (11.5-14.5) % Plt Count (130-400) K/uL MPV (7.2-11.7) fL Neut % (Auto) (50.0-75.0) % Lymph % (Auto) (20.0-40.0) % [place] % (Auto) (0.0-10.0) % Eos % (Auto) (0.0-4.0) % Baso % (Auto) (0.0-2.0) % Neut # (1.8-7.0) K/uL Lymph # (1.0-4.3) K/uL [place] # (0.0-0.8) K/uL Eos # (0.0-0.7) K/uL Baso # (0.0-0.2) K/uL Neutrophils % (Manual) (50-75) % Band Neutrophils % (0-2) % Lymphocytes % (Manual) (20-40) % Monocytes % (Manual) (0-10) % Differential Comment Toxic Granulation Platelet Estimate (NORMAL) Large Platelets Giant Platelets Polychromasia Hypochromasia (manual) Poikilocytosis (manual Anisocytosis (manual) Microcytosis (manual) Tear Drop Cells Ovalocytes [place] Cells Schistocytes Puncture Site Na Lr pCO2 34 L (35-45) mm/Hg pO2 41 339 H (80-100) mm/Hg HCO3 12.2 L (21-28) mmol/L ABG pH 7.14 L* (7.35-7.45) ABG Total CO2 12.6 L (22-28) mmol/L ABG O2 Saturation 100.9 H (95-98) % ABG Base Excess -16.4 L (-2.0-3.0) mmol/L Ferny Test Na Unable ABG Potassium 5.2 (3.6-5.2) mmol/L VBG pH 7.17 L* (7.32-7.43) VBG pCO2 37 L (40-60) mmHg VBG HCO3 12.8 mmol/L VBG Total CO2 (22-28) mmol/L VBG O2 Sat (Calc) 77.5 H (40-65) % VBG Base Excess -14.2 L (0.0-2.0) mmol/L VBG Potassium (3.6-5.2) mmol/L A-a O2 Difference 332.0 mm/Hg Respiratory Index 1.0 Glucose 118 H (75-110) mg/dl Lactate 13.4 H* (0.7-2.1) mmol/L Vent Mode Prvc Mechanical Rate 14 FiO2 100.0 % Tidal Volume 500 PEEP 5 Crit Value Called To Dr. gee fitch Crit Value Called By Adriel cement side laster Josef clayjaved Crit Value Read Back Y Y Blood Gas Notified Time 150 2200 Sodium 138.0 (132-148) mmol/L Potassium (3.6-5.2) mmol/L Chloride 108.0 H (98-107) mmol/L Carbon Dioxide (22-30) mmol/L Anion Gap (10-20) BUN (9-20) mg/dL Creatinine (0.8-1.5) mg/dL Est GFR ( Amer) Est GFR (Non-Af Amer) POC Glucose (mg/dL) 71 (65-110) mg/dL Random Glucose (75-110) mg/dL Lactic Acid (0.7-2.1) mmol/L Calcium (8.6-10.4) mg/dl Phosphorus (2.5-4.5) mg/dL Magnesium (1.6-2.3) mg/dL Total Bilirubin (0.2-1.3) mg/dL AST (17-59) U/L ALT (21-72) U/L Alkaline Phosphatase (38-126) U/L Total Creatine Kinase (55-170) U/L CK-MB (Mass) (0.0-3.38) ng/mL Troponin I (0.00-0.120) ng/mL Total Protein (6.3-8.3) g/dL Albumin (3.5-5.0) g/dL Globulin (2.2-3.9) gm/dL Albumin/Globulin Ratio (1.0-2.1) Triglycerides (0-149) mg/dL Cholesterol (0-199) mg/dL LDL Cholesterol Direct (0-129) mg/dL HDL Cholesterol (30-70) mg/dL Lipase (23-300) U/L Arterial Blood Potassium 5.2 (3.6-5.2) mmol/L Venous Blood Potassium (3.6-5.2) mmol/L Stool Occult Blood (NEGATIVE) Alcohol, Quantitative (0-10) mg/dl Blood Type Antibody Screen 09/28/17 09/28/17 09/28/17 Range/Units 21:22 21:01 21:00 WBC (4.8-10.8) K/uL RBC (4.40-5.90) Mil/uL Hgb (12.0-18.0) g/dL Hct (35.0-51.0) % MCV (80.0-94.0) fL MCH (27.0-31.0) pg MCHC (33.0-37.0) g/dL RDW (11.5-14.5) % Plt Count (130-400) K/uL MPV (7.2-11.7) fL Neut % (Auto) (50.0-75.0) % Lymph % (Auto) (20.0-40.0) % [place] % (Auto) (0.0-10.0) % Eos % (Auto) (0.0-4.0) % Baso % (Auto) (0.0-2.0) % Neut # (1.8-7.0) K/uL Lymph # (1.0-4.3) K/uL [place] # (0.0-0.8) K/uL Eos # (0.0-0.7) K/uL Baso # (0.0-0.2) K/uL Neutrophils % (Manual) (50-75) % Band Neutrophils % (0-2) % Lymphocytes % (Manual) (20-40) % Monocytes % (Manual) (0-10) % Differential Comment Toxic Granulation Platelet Estimate (NORMAL) Large Platelets Giant Platelets Polychromasia Hypochromasia (manual) Poikilocytosis (manual Anisocytosis (manual) Microcytosis (manual) Tear Drop Cells Ovalocytes [place] Cells Schistocytes Puncture Site pCO2 (35-45) mm/Hg pO2 (80-100) mm/Hg HCO3 (21-28) mmol/L ABG pH (7.35-7.45) ABG Total CO2 (22-28) mmol/L ABG O2 Saturation (95-98) % ABG Base Excess (-2.0-3.0) mmol/L Ferny Test ABG Potassium (3.6-5.2) mmol/L VBG pH (7.32-7.43) VBG pCO2 (40-60) mmHg VBG HCO3 mmol/L VBG Total CO2 (22-28) mmol/L VBG O2 Sat (Calc) (40-65) % VBG Base Excess (0.0-2.0) mmol/L VBG Potassium (3.6-5.2) mmol/L A-a O2 Difference mm/Hg Respiratory Index Glucose (75-110) mg/dl Lactate (0.7-2.1) mmol/L Vent Mode Mechanical Rate FiO2 % Tidal Volume PEEP Crit Value Called To Crit Value Called By Crit Value Read Back Blood Gas Notified Time Sodium (132-148) mmol/L Potassium (3.6-5.2) mmol/L Chloride (98-107) mmol/L Carbon Dioxide (22-30) mmol/L Anion Gap (10-20) BUN (9-20) mg/dL Creatinine (0.8-1.5) mg/dL Est GFR ( Amer) Est GFR (Non-Af Amer) POC Glucose (mg/dL) (65-110) mg/dL Random Glucose (75-110) mg/dL Lactic Acid (0.7-2.1) mmol/L Calcium (8.6-10.4) mg/dl Phosphorus (2.5-4.5) mg/dL Magnesium (1.6-2.3) mg/dL Total Bilirubin (0.2-1.3) mg/dL AST (17-59) U/L ALT (21-72) U/L Alkaline Phosphatase (38-126) U/L Total Creatine Kinase 851 H (55-170) U/L CK-MB (Mass) (0.0-3.38) ng/mL Troponin I (0.00-0.120) ng/mL Total Protein (6.3-8.3) g/dL Albumin (3.5-5.0) g/dL Globulin (2.2-3.9) gm/dL Albumin/Globulin Ratio (1.0-2.1) Triglycerides (0-149) mg/dL Cholesterol (0-199) mg/dL LDL Cholesterol Direct (0-129) mg/dL HDL Cholesterol (30-70) mg/dL Lipase (23-300) U/L Arterial Blood Potassium (3.6-5.2) mmol/L Venous Blood Potassium (3.6-5.2) mmol/L Stool Occult Blood Positive H (NEGATIVE) Alcohol, Quantitative (0-10) mg/dl Blood Type A NEGATIVE Antibody Screen Negative 09/28/17 09/28/17 09/28/17 Range/Units 20:58 20:56 20:56 WBC 30.8 H D (4.8-10.8) K/uL RBC 2.86 L (4.40-5.90) Mil/uL Hgb 8.9 L D (12.0-18.0) g/dL Hct 29.0 L (35.0-51.0) % MCV 101.2 H D (80.0-94.0) fL MCH 31.1 H (27.0-31.0) pg MCHC 30.8 L (33.0-37.0) g/dL RDW 17.0 H (11.5-14.5) % Plt Count 108 L D (130-400) K/uL MPV 8.1 (7.2-11.7) fL Neut % (Auto) 67.7 (50.0-75.0) % Lymph % (Auto) 25.4 (20.0-40.0) % [place] % (Auto) 5.4 (0.0-10.0) % Eos % (Auto) 0.1 (0.0-4.0) % Baso % (Auto) 1.4 (0.0-2.0) % Neut # 20.9 H (1.8-7.0) K/uL Lymph # 7.8 H (1.0-4.3) K/uL [place] # 1.7 H (0.0-0.8) K/uL Eos # 0.0 (0.0-0.7) K/uL Baso # 0.4 H (0.0-0.2) K/uL Neutrophils % (Manual) (50-75) % Band Neutrophils % (0-2) % Lymphocytes % (Manual) (20-40) % Monocytes % (Manual) (0-10) % Differential Comment Toxic Granulation Platelet Estimate (NORMAL) Large Platelets Giant Platelets Polychromasia Hypochromasia (manual) Poikilocytosis (manual Anisocytosis (manual) Microcytosis (manual) Tear Drop Cells Ovalocytes [place] Cells Schistocytes Puncture Site pCO2 (35-45) mm/Hg pO2 (80-100) mm/Hg HCO3 (21-28) mmol/L ABG pH (7.35-7.45) ABG Total CO2 (22-28) mmol/L ABG O2 Saturation (95-98) % ABG Base Excess (-2.0-3.0) mmol/L Ferny Test ABG Potassium (3.6-5.2) mmol/L VBG pH (7.32-7.43) VBG pCO2 (40-60) mmHg VBG HCO3 mmol/L VBG Total CO2 (22-28) mmol/L VBG O2 Sat (Calc) (40-65) % VBG Base Excess (0.0-2.0) mmol/L VBG Potassium (3.6-5.2) mmol/L A-a O2 Difference mm/Hg Respiratory Index Glucose (75-110) mg/dl Lactate (0.7-2.1) mmol/L Vent Mode Mechanical Rate FiO2 % Tidal Volume PEEP Crit Value Called To Crit Value Called By Crit Value Read Back Blood Gas Notified Time Sodium 135 (132-148) mmol/L Potassium 6.3 H* D (3.6-5.2) mmol/L Chloride 103 (98-107) mmol/L Carbon Dioxide 20 L (22-30) mmol/L Anion Gap 19 (10-20) BUN 30 H (9-20) mg/dL Creatinine 1.5 (0.8-1.5) mg/dL Est GFR ( Amer) 59 Est GFR (Non-Af Amer) 49 POC Glucose (mg/dL) 210 H (65-110) mg/dL Random Glucose 28 L* D (75-110) mg/dL Lactic Acid (0.7-2.1) mmol/L Calcium 8.0 L (8.6-10.4) mg/dl Phosphorus (2.5-4.5) mg/dL Magnesium (1.6-2.3) mg/dL Total Bilirubin 3.0 H (0.2-1.3) mg/dL AST 423 H D (17-59) U/L ALT 106 H D (21-72) U/L Alkaline Phosphatase 291 H (38-126) U/L Total Creatine Kinase 858 H (55-170) U/L CK-MB (Mass) 10.3 H (0.0-3.38) ng/mL Troponin I 0.0260 (0.00-0.120) ng/mL Total Protein 5.4 L (6.3-8.3) g/dL Albumin 2.0 L (3.5-5.0) g/dL Globulin 3.4 (2.2-3.9) gm/dL Albumin/Globulin Ratio 0.6 L (1.0-2.1) Triglycerides 85 (0-149) mg/dL Cholesterol 53 (0-199) mg/dL LDL Cholesterol Direct 30 (0-129) mg/dL HDL Cholesterol < 5 L (30-70) mg/dL Lipase 2273 H (23-300) U/L Arterial Blood Potassium (3.6-5.2) mmol/L Venous Blood Potassium (3.6-5.2) mmol/L Stool Occult Blood (NEGATIVE) Alcohol, Quantitative < 10 (0-10) mg/dl Blood Type Antibody Screen Laboratory Results - last 24 hr 09/28/17 09/28/17 09/28/17 20:56 20:56 20:58 WBC 30.8 H D RBC 2.86 L Hgb 8.9 L D Hct 29.0 L MCV 101.2 H D MCH 31.1 H MCHC 30.8 L RDW 17.0 H Plt Count 108 L D MPV 8.1 Neut % (Auto) 67.7 Lymph % (Auto) 25.4 [place] % (Auto) 5.4 Eos % (Auto) 0.1 Baso % (Auto) 1.4 Neut # 20.9 H Lymph # 7.8 H [place] # 1.7 H Eos # 0.0 Baso # 0.4 H Neutrophils % (Manual) Band Neutrophils % Lymphocytes % (Manual) Monocytes % (Manual) Differential Comment Toxic Granulation Platelet Estimate Large Platelets Giant Platelets Polychromasia Hypochromasia (manual) Poikilocytosis (manual Anisocytosis (manual) Microcytosis (manual) Tear Drop Cells Ovalocytes [place] Cells Schistocytes Puncture Site pCO2 pO2 HCO3 ABG pH ABG Total CO2 ABG O2 Saturation ABG Base Excess Ferny Test ABG Potassium VBG pH VBG pCO2 VBG HCO3 VBG Total CO2 VBG O2 Sat (Calc) VBG Base Excess VBG Potassium A-a O2 Difference Respiratory Index Glucose Lactate Vent Mode Mechanical Rate FiO2 Tidal Volume PEEP Crit Value Called To Crit Value Called By Crit Value Read Back Blood Gas Notified Time Sodium 135 Potassium 6.3 H* D Chloride 103 Carbon Dioxide 20 L Anion Gap 19 BUN 30 H Creatinine 1.5 Est GFR ( Amer) 59 Est GFR (Non-Af Amer) 49 POC Glucose (mg/dL) 210 H Random Glucose 28 L* D Lactic Acid Calcium 8.0 L Phosphorus Magnesium Total Bilirubin 3.0 H AST 423 H D ALT 106 H D Alkaline Phosphatase 291 H Total Creatine Kinase 858 H CK-MB (Mass) 10.3 H Troponin I 0.0260 Total Protein 5.4 L Albumin 2.0 L Globulin 3.4 Albumin/Globulin Ratio 0.6 L Triglycerides 85 Cholesterol 53 LDL Cholesterol Direct 30 HDL Cholesterol < 5 L Lipase 2273 H Arterial Blood Potassium Venous Blood Potassium Stool Occult Blood Alcohol, Quantitative < 10 Blood Type Antibody Screen 09/28/17 09/28/17 09/28/17 21:00 21:01 21:22 WBC RBC Hgb Hct MCV MCH MCHC RDW Plt Count MPV Neut % (Auto) Lymph % (Auto) [place] % (Auto) Eos % (Auto) Baso % (Auto) Neut # Lymph # [place] # Eos # Baso # Neutrophils % (Manual) Band Neutrophils % Lymphocytes % (Manual) Monocytes % (Manual) Differential Comment Toxic Granulation Platelet Estimate Large Platelets Giant Platelets Polychromasia Hypochromasia (manual) Poikilocytosis (manual Anisocytosis (manual) Microcytosis (manual) Tear Drop Cells Ovalocytes [place] Cells Schistocytes Puncture Site pCO2 pO2 HCO3 ABG pH ABG Total CO2 ABG O2 Saturation ABG Base Excess Ferny Test ABG Potassium VBG pH VBG pCO2 VBG HCO3 VBG Total CO2 VBG O2 Sat (Calc) VBG Base Excess VBG Potassium A-a O2 Difference Respiratory Index Glucose Lactate Vent Mode Mechanical Rate FiO2 Tidal Volume PEEP Crit Value Called To Crit Value Called By Crit Value Read Back Blood Gas Notified Time Sodium Potassium Chloride Carbon Dioxide Anion Gap BUN Creatinine Est GFR ( Amer) Est GFR (Non-Af Amer) POC Glucose (mg/dL) Random Glucose Lactic Acid Calcium Phosphorus Magnesium Total Bilirubin AST ALT Alkaline Phosphatase Total Creatine Kinase 851 H CK-MB (Mass) Troponin I Total Protein Albumin Globulin Albumin/Globulin Ratio Triglycerides Cholesterol LDL Cholesterol Direct HDL Cholesterol Lipase Arterial Blood Potassium Venous Blood Potassium Stool Occult Blood Positive H Alcohol, Quantitative Blood Type A NEGATIVE Antibody Screen Negative 09/28/17 09/29/17 09/29/17 21:56 01:05 01:46 WBC RBC Hgb Hct MCV MCH MCHC RDW Plt Count MPV Neut % (Auto) Lymph % (Auto) [place] % (Auto) Eos % (Auto) Baso % (Auto) Neut # Lymph # [place] # Eos # Baso # Neutrophils % (Manual) Band Neutrophils % Lymphocytes % (Manual) Monocytes % (Manual) Differential Comment Toxic Granulation Platelet Estimate Large Platelets Giant Platelets Polychromasia Hypochromasia (manual) Poikilocytosis (manual Anisocytosis (manual) Microcytosis (manual) Tear Drop Cells Ovalocytes [place] Cells Schistocytes Puncture Site Lr Na pCO2 34 L pO2 339 H 41 HCO3 12.2 L ABG pH 7.14 L* ABG Total CO2 12.6 L ABG O2 Saturation 100.9 H ABG Base Excess -16.4 L Ferny Test Unable Na ABG Potassium 5.2 VBG pH 7.17 L* VBG pCO2 37 L VBG HCO3 12.8 VBG Total CO2 VBG O2 Sat (Calc) 77.5 H VBG Base Excess -14.2 L VBG Potassium A-a O2 Difference 332.0 Respiratory Index 1.0 Glucose 118 H Lactate 13.4 H* Vent Mode Prvc Mechanical Rate 14 FiO2 100.0 Tidal Volume 500 PEEP 5 Crit Value Called To Dr. constantine flynn Crit Value Called By Josef Morel cement side laster Crit Value Read Back Y Y Blood Gas Notified Time 2200 150 Sodium 138.0 Potassium Chloride 108.0 H Carbon Dioxide Anion Gap BUN Creatinine Est GFR ( Amer) Est GFR (Non-Af Amer) POC Glucose (mg/dL) 71 Random Glucose Lactic Acid Calcium Phosphorus Magnesium Total Bilirubin AST ALT Alkaline Phosphatase Total Creatine Kinase CK-MB (Mass) Troponin I Total Protein Albumin Globulin Albumin/Globulin Ratio Triglycerides Cholesterol LDL Cholesterol Direct HDL Cholesterol Lipase Arterial Blood Potassium 5.2 Venous Blood Potassium Stool Occult Blood Alcohol, Quantitative Blood Type Antibody Screen 09/29/17 09/29/17 09/29/17 01:48 01:48 02:15 WBC 37.2 H* RBC 1.63 L Hgb 5.0 L* D Hct 16.3 L MCV 100.2 H MCH 30.8 MCHC 30.8 L RDW 16.8 H Plt Count 71 L D MPV 7.4 Neut % (Auto) 84.6 H Lymph % (Auto) 7.2 L [place] % (Auto) 7.2 Eos % (Auto) 0.1 Baso % (Auto) 0.9 Neut # 31.4 H Lymph # 2.7 [place] # 2.7 H Eos # 0.0 Baso # 0.3 H Neutrophils % (Manual) 80 H Band Neutrophils % 8 H Lymphocytes % (Manual) 7 L Monocytes % (Manual) 5 Differential Comment Toxic Granulation Present Platelet Estimate Decreased L Large Platelets Present Giant Platelets Present Polychromasia Slight Hypochromasia (manual) Poikilocytosis (manual Anisocytosis (manual) Slight Microcytosis (manual) Slight Tear Drop Cells Slight Ovalocytes Slight Brit Cells Schistocytes Puncture Site pCO2 pO2 HCO3 ABG pH ABG Total CO2 ABG O2 Saturation ABG Base Excess Ferny Test ABG Potassium VBG pH VBG pCO2 VBG HCO3 VBG Total CO2 VBG O2 Sat (Calc) VBG Base Excess VBG Potassium A-a O2 Difference Respiratory Index Glucose Lactate Vent Mode Mechanical Rate FiO2 Tidal Volume PEEP Crit Value Called To Crit Value Called By Crit Value Read Back Blood Gas Notified Time Sodium 135 Potassium 4.9 Chloride 108 H Carbon Dioxide 15 L Anion Gap 16 BUN 27 H Creatinine 1.4 Est GFR ( Amer) > 60 Est GFR (Non-Af Amer) 53 POC Glucose (mg/dL) 55 L Random Glucose 57 L Lactic Acid Calcium 6.2 L Phosphorus 7.1 H Magnesium 1.9 Total Bilirubin 2.4 H AST ALT 820 H D Alkaline Phosphatase 268 H Total Creatine Kinase CK-MB (Mass) Troponin I Total Protein 2.8 L Albumin 1.1 L D Globulin 1.7 L Albumin/Globulin Ratio 0.6 L Triglycerides Cholesterol LDL Cholesterol Direct HDL Cholesterol Lipase Arterial Blood Potassium Venous Blood Potassium Stool Occult Blood Alcohol, Quantitative Blood Type Antibody Screen 09/29/17 09/29/17 09/29/17 03:10 03:30 05:13 WBC RBC Hgb Hct MCV MCH MCHC RDW Plt Count MPV Neut % (Auto) Lymph % (Auto) [place] % (Auto) Eos % (Auto) Baso % (Auto) Neut # Lymph # [place] # Eos # Baso # Neutrophils % (Manual) Band Neutrophils % Lymphocytes % (Manual) Monocytes % (Manual) Differential Comment Toxic Granulation Platelet Estimate Large Platelets Giant Platelets Polychromasia Hypochromasia (manual) Poikilocytosis (manual Anisocytosis (manual) Microcytosis (manual) Tear Drop Cells Ovalocytes Brit Cells Schistocytes Puncture Site pCO2 pO2 HCO3 ABG pH ABG Total CO2 ABG O2 Saturation ABG Base Excess Ferny Test ABG Potassium VBG pH VBG pCO2 VBG HCO3 VBG Total CO2 VBG O2 Sat (Calc) VBG Base Excess VBG Potassium A-a O2 Difference Respiratory Index Glucose Lactate Vent Mode Mechanical Rate FiO2 Tidal Volume PEEP Crit Value Called To Crit Value Called By Crit Value Read Back Blood Gas Notified Time Sodium Potassium Chloride Carbon Dioxide Anion Gap BUN Creatinine Est GFR ( Amer) Est GFR (Non-Af Amer) POC Glucose (mg/dL) 128 H 120 H Random Glucose Lactic Acid 11.6 H* Calcium Phosphorus Magnesium Total Bilirubin AST ALT Alkaline Phosphatase Total Creatine Kinase CK-MB (Mass) Troponin I Total Protein Albumin Globulin Albumin/Globulin Ratio Triglycerides Cholesterol LDL Cholesterol Direct HDL Cholesterol Lipase Arterial Blood Potassium Venous Blood Potassium Stool Occult Blood Alcohol, Quantitative Blood Type Antibody Screen 09/29/17 09/29/17 09/29/17 05:50 06:52 06:52 WBC 41.0 H* RBC 2.52 L Hgb 7.5 L D Hct 24.2 L MCV 96.1 H D MCH 29.8 MCHC 31.0 L RDW 18.0 H Plt Count 65 L MPV 7.5 Neut % (Auto) 85.8 H Lymph % (Auto) 8.3 L [place] % (Auto) 5.6 Eos % (Auto) 0.0 Baso % (Auto) 0.3 Neut # 35.2 H Lymph # 3.4 [place] # 2.3 H Eos # 0.0 Baso # 0.1 Neutrophils % (Manual) 86 H Band Neutrophils % 12 H* Lymphocytes % (Manual) TEST NOT PERFORMED Monocytes % (Manual) 2 Differential Comment Toxic Granulation Present Platelet Estimate Decreased L Large Platelets Present Giant Platelets Present Polychromasia Slight Hypochromasia (manual) Slight Poikilocytosis (manual Slight Anisocytosis (manual) Moderate Microcytosis (manual) Tear Drop Cells Ovalocytes Slight Brit Cells Slight Schistocytes Slight Puncture Site pCO2 pO2 25 L HCO3 ABG pH ABG Total CO2 ABG O2 Saturation ABG Base Excess Ferny Test ABG Potassium VBG pH 7.08 L* VBG pCO2 45 VBG HCO3 10.2 VBG Total CO2 14.7 L VBG O2 Sat (Calc) 45.6 VBG Base Excess -16.3 L VBG Potassium 5.8 H A-a O2 Difference Respiratory Index Glucose 114 H Lactate 12.4 H* Vent Mode Mechanical Rate FiO2 Tidal Volume PEEP Crit Value Called To Evita montez/rn Crit Value Called By Artis [email or web address]/rt Crit Value Read Back Y Blood Gas Notified Time 605 Sodium 137.0 134 Potassium 5.8 H Chloride 108.0 H 108 H Carbon Dioxide 14 L Anion Gap 17 BUN 28 H Creatinine 1.6 H Est GFR ( Amer) 55 Est GFR (Non-Af Amer) 45 POC Glucose (mg/dL) Random Glucose 104 Lactic Acid Calcium 6.7 L Phosphorus 8.0 H Magnesium 1.9 Total Bilirubin 3.6 H AST 6496 H ALT 1587 H Alkaline Phosphatase 549 H D Total Creatine Kinase CK-MB (Mass) Troponin I Total Protein 3.1 L Albumin 1.2 L Globulin 1.9 L Albumin/Globulin Ratio 0.6 L Triglycerides Cholesterol LDL Cholesterol Direct HDL Cholesterol Lipase Arterial Blood Potassium Venous Blood Potassium 5.8 H Stool Occult Blood Alcohol, Quantitative Blood Type Antibody Screen EKG/Cardiology Studies: Cardiology / EKG Studies 09/28/17 21:20 EKG [ELECTROCARDIOGRAM] Stat Comment: Mode Of Transportation: BED Reason For Exam: cardiac arrest Isolation: Contact Fingerstick Blood Sugar Results: 120 Assessment/Plan - Assessment and Plan (Free Text) Assessment: 52M S/p cardiac arrest, approx 20 min before CPR started, ROSC in ED, 2 epi given Plan: Neuro: likely anoxic seizures keppra and ativan given Cardio: S/p cardiac arrest, approx 20 min before CPR started, ROSC in ED, 2 epi given Max Levophed Dopamine running Albumin 1x D5Na bicarb hypothermic 92 GI: GI bleed Blood out of NGT in ED protonix drip Endo: Possible adrenal insuff/crisis Hydrocortisone 100 IV Q8 ID: HIV/HCV Zosyn 2.25 IV Q6 Prognosis is quite grim. Family aware
[2017-09-29 09:12] LABS: ALB/GLOB RATIO 0.7 (1.0-2.1); ALBUMIN 1.1 g/dL (3.5-5.0); ALT/SGPT 805 U/L (21-72); BLOOD UREA NITROGEN 28 mg/dL (9-20); CALCIUM 6.4 mg/dl (8.6-10.4); GFR AFRICAN-AMERICAN > 60; GFR NON-AFRICAN AMERICAN 53
[2017-09-29 09:39] LABS: AST/SGOT 3378 U/L (17-59)
--- NOTE | 2017-09-29 10:03 | RAD ---
HISTORY: follow up COMPARISON: Chest x-ray performed 09/28/17 TECHNIQUE: Chest, one view. FINDINGS: Endotracheal tube terminates approximately 5 cm above the shubham. Nasogastric tube extends expected location of the stomach. Right IJ approach central venous catheter extends the SVC. External defibrillator pad projects over the left lower chest/ upper abdomen. Numerous external wires and leads obscure evaluation of the underlying parenchyma. Examination limited by habitus, hypoinflation, and patient obliquity. LUNGS: Hazy pulmonary opacity within the left jax thorax may reflect interstitial edema or infiltrate. Convex left apical as well as lateral pleural opacity, possibly loculated pleural effusion. No definite pneumothorax. CARDIOVASCULAR: Top-normal. OSSEOUS STRUCTURES: No acute osseous abnormality is detected. VISUALIZED UPPER ABDOMEN: Unremarkable. OTHER FINDINGS: None. IMPRESSION: Endotracheal tube terminates approximately 5 cm above the shubham. Nasogastric tube extends expected location of the stomach. Right IJ approach central venous catheter extends the SVC. External defibrillator pad projects over the left lower chest/ upper abdomen. Hazy pulmonary opacity within the left jax thorax may reflect interstitial edema or infiltrate. Convex left apical as well as lateral pleural opacity, possibly loculated pleural effusion.
[2017-09-29 10:18] VITALS: BP 59/39; PULSE 39; RESP 24; TEMP 91.3; O2SAT 98
--- NOTE | 2017-09-29 10:24 | CP.PCM.PRO ---
Pronouncement of Note - Clinical Findings Physical Exam: No Response Verbal/Painful Stimuli, Absent Peripheral Pulses{ Carotid & Femoral}, Absent Heart & Breath Sounds, No Pupillary Light Reflex, No Corneal Reflex, Pupils Fixed & Dilated, Absence of Vital Signs - Pronouncement Time Time of Pronouncement of : 10:20 - Notifications Pronouncement Notifications: Family Notified, Atending Notified Case Management Coordinator Notified: Yes - Autopsy Autopsy Requested: No - [place] [id number]
--- NOTE | 2017-09-29 10:55 | CARD ---
APPROVED REPORT EKG Measurement Heart [id number] ID [id number] <Conclusion> Sinus bradycardia with sinus arrhythmia Lateral infarct, age undetermined Abnormal ECG
--- NOTE | 2017-09-29 11:24 | RAD ---
HISTORY: Code. Portable study 21:09. COMPARISON: 09/23/2017. FINDINGS: LUNGS: Consolidative changes are progressive right lower lobe. PLEURA: No significant pleural effusion identified, no pneumothorax apparent. CARDIOVASCULAR: Cardiomegaly. No evidence of acute, significant cardiovascular disease. OSSEOUS STRUCTURES: No significant abnormalities. VISUALIZED UPPER ABDOMEN: Normal. OTHER FINDINGS: Endotracheal tube tip at the level of the clavicles. IMPRESSION: Progressive consolidative changes right lower lobe. Endotracheal tube tip at the level of the clavicles.
== END 2017-09-29 10:20 | DRG 707 ==
LOC: C.ER 20:44 → C.9I 22:15
PROVIDERS: ADMIT Internal Medicine; ATTEND Internal Medicine
PROC: 02HV33Z Insertion of Infusion Device into Superior Vena Cava, Percutaneous Approach (ICD-10-PCS; principal; 2017-09-28)
PROC: 5A1945Z Respiratory Ventilation, 24-96 Consecutive Hours (ICD-10-PCS; 2017-09-28)
PROC: 0BH17EZ Insertion of Endotracheal Airway into Trachea, Via Natural or Artificial Opening (ICD-10-PCS; 2017-09-28)
DX: J18.1 Lobar pneumonia, unspecified organism (principal); B20 Human immunodeficiency virus [HIV] disease; C22.0 Liver cell carcinoma; E87.5 Hyperkalemia; K92.2 Gastrointestinal hemorrhage, unspecified; E16.2 Hypoglycemia, unspecified; J45.909 Unspecified asthma, uncomplicated; F17.210 Nicotine dependence, cigarettes, uncomplicated